=== PATIENT | male | born 1970 | race Caucasian/White ===

== ENCOUNTER 2019-04-08 17:39 | Inpatient (IN) | payer OTHER, MEDICAID ==
[~2019-04-08] VITALS: Ht 167.6 cm; Wt 61.7 kg
[2019-04-08 18:25] VITALS: BP_SYST 157
--- NOTE | 2019-04-08 19:58 | NUR ---
BROUGHT IN BY EMS FOR SUPRAPUBIC CATHETER DYSFUNTION. PLACED IN BED 4. PT. IS ALERT,ORIENTED. AFEBRILE, NOT IN ACUTE DISTRESS. VERBALIZED PAIN ON THE LEFT BUTTOCK DECUBITUS ULERS. AWAITING EVALUATION.
--- NOTE | 2019-04-08 20:02 | NUR ---
ER-MD CAME BY BEDSIDE TO EVALUATE PT.
[2019-04-08] MEDS ORDERED: KETOROLAC TROMETHAMINE 30 MG VIAL IVP ONE (20:15)
[2019-04-08] MEDS ORDERED: NACL 0.9% 1,000 ML IV ONE (20:15)
--- NOTE | 2019-04-08 20:23 | NUR ---
CALLED BACK. PT. ADMITTED TO MED-SURG IN PATIENT FOR STAGE 4 DECUBITUS ULCER AND DEHYDRATION. PARTIAL ADMITTING ORDERS GIVEN.
--- NOTE | 2019-04-08 20:29 | NUR ---
REPLACEMENT OF SUPRAPUBIC CATHETER ATTEMPTED BY PT/RN WITH MD'S PERMISSION BUT UNABLE. AWARE.
--- NOTE | 2019-04-08 20:55 | NUR ---
GAUGE 22 IV LINE ESTABLISHED TO THE LEFT UPPER ARM. NS @ 100 ML/HR AND TORADOL 30 MG IVP GIVEN ORDERED.
--- NOTE | 2019-04-08 21:16 | NUR ---
BLOOD DRAWN BY PIZZA CHEF.
[2019-04-08 21:26] LABS: BASOPHILS # (AUTO) 0.1 K/uL (0.0-0.2); BASOPHILS % (AUTO) 0.6 % (0.0-2.0); EOSINOPHILS # (AUTO) 0.1 K/uL (0.0-0.4); EOSINOPHILS % (AUTO) 1.5 % (0.0-4.0); HEMATOCRIT 22.8 % (36-54); HEMOGLOBIN 7.6 g/dL (14.0-18.0); LYMPHOCYTES # (AUTO) 1.1 K/uL (1.0-5.5); LYMPHOCYTES % (AUTO) 13.3 % (20.5-51.5); MEAN CORPUSCULAR HEMOGLOBIN 25 pg (27-31); MEAN CORPUSCULAR HGB CONC 34 % (32-36); MEAN CORPUSCULAR VOLUME 74 fL (79.0-98.0); MONOCYTES # (AUTO) 0.9 K/uL (0.0-1.0); MONOCYTES % (AUTO) 11.5 % (1.7-9.3); NEUTROPHILS % (AUTO) 73.1 % (40.0-70.0); PLATELET COUNT (AUTO) 487 K/uL (130-430); RED BLOOD CELL COUNT(AUTO) 3.07 MIL/uL (4.2-6.2); RED CELL DISTRIBUTION WIDTH 20.5 % (9.0-15.0); WHITE BLOOD COUNT (AUTO) 8.3 K/uL (4.8-10.8)
[2019-04-08 21:49] LABS: CALCIUM 7.3 mg/dL (8.4-11.0); CREATININE 1.54 mg/dL (0.55-1.30); POTASSIUM 3.5 mmol/L (3.5-5.1)
[2019-04-08 21:55] LABS: ALBUMIN 1.6 g/dL (3.4-4.8); TOTAL BILIRUBIN 0.2 mg/dL (0.0-1.0)
--- NOTE | 2019-04-08 22:28 | NUR ---
CALLLED MED-SURG FLOOR TO GIVE REPORT BUT CALVIN JACKSON NOT AVAILABLE AT THIS TIME. FUEL EFFICIENT AIRCRAFT DESIGNER SAID SHE WILL HAVE HER CALL ER BACK. WILL TRY AGAIN.
--- NOTE | 2019-04-08 23:15 | NUR ---
REPORT GIVEN TO MANUEL SIMPSON. PT. GOING TO ROOM 114-A. PAIN BETTER. VS REMAIN STABLE.
--- NOTE | 2019-04-08 23:25 | NUR ---
TRANSFERRED TO FLOOR VIA [facility]. TRANSFER UNEVENTFUL.
--- NOTE | 2019-04-08 23:45 | NUR ---
ADMISSION: The patient, CY NICHOLSON, 49 y/o, M admitted by MAXIMINO GALVAN MD, was oriented to room, call light and unit. Valuables were checked and .
[2019-04-09 00:26] VITALS: BP_SYST 146
--- NOTE | 2019-04-09 00:28 | NUR ---
Dr. Xei s/w Dr. Xie and informed patient is requesting dilaudid pain medication for his decub. Dr. Xie states he is familiar with this patient and he will not order dilaudid. He did order [place] 10-325mg Q6prn for severe pain, he also ordered a consult w/ Dr.John Ayala for suprapubic placement. Read back order and entered in [employer].
[2019-04-09] MEDS: HYDROcodone/ACETAMIN 10-325 MG TAB PO PRN ×4 (02:05→21:13)
[2019-04-09 02:07] VITALS: BP_SYST 146
--- NOTE | 2019-04-09 02:42 | NUR ---
CONSULTATION PAGED/CALLED Reason for Consultation: SUPRAPUBIC PLACEMENT Person Who was Notified: CUBA Consulting Physician: NICOLE DONALDSON; TRAVELING INVENTORY ASSOCIATE- MATT FONG Milk Pasteurizer Specialty: UROLOGY Ordering Physician: DR. GALVAN
[2019-04-09 08:00] VITALS: BP_SYST 173
--- NOTE | 2019-04-09 10:12 | NUR ---
Nutrition Update Thomas Scale 12 noted. Pt admitted for stage 3 decubitus ulcer, suprapubic catheter dysfunction. Diet: regular BMI: 22.2 kg/m2 RD to follow per nutrition care standards.
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
--- NOTE | 2019-04-09 11:41 | NUR ---
UROLOGY KIMMIE FONG LATE ENTRY DUE TO PATIENT CARE 0800 RECEIVED A CALL FROM MATT BURKS FROM DR BARRIOS OFFICE INQUIRING ABOUT PATIENT. INFORMATION AND PATIENT CONDITION WHY UROLOGY REFERAL WAS RELAYED TO [facility]. NO NEW ORDER GIVEN
[2019-04-09 12:02] VITALS: BP_SYST 167
--- NOTE | 2019-04-09 12:56 | NUR ---
UROLOGY RN REPORTED THAT SW DR MCCOY UROLOGIST THAT DR MCCOY'S GROUP WILL NOT TAKE PATIENT AT THIS TIME. CALLED FOR CONSULTED.
[2019-04-09] MEDS ORDERED: cloNIDine HCL 0.2 MG TABLET PO ONE (14:00)
[2019-04-09] MEDS ORDERED: BALSAM PERU/CASTOR OIL 60 GM OINT...G. TP ONE (15:15)
--- NOTE | 2019-04-09 15:40 | NUR ---
urology consult called Dr Ayala's office to follow up on the consult for patient and SW who will page .
[2019-04-09 16:56] VITALS: BP_SYST 133
--- NOTE | 2019-04-09 16:58 | NUR ---
WOUND EVALUATION: Late note for 1657 secondary to patient care. Wound Consult received from Dr. Xie. Thank you, Dr. Xie, for the consult. Patient received in a Katrina Bed with an Isoflex DEB mattress with low air-loss therapy initiated, awake, alert, and oriented. Patient is able to turn in bed independently. Thomas Score is a 12. Past Medical History: Paraplegia secondary to Spinal Cord Injury, Stage 4 decubitus ulcer of the Coccyx, Neurogenic Bladder, status post Suprapubic Catheter placement. Admitted for dysfunction of the Suprapubic Catheter and generalized weakness. Recent Labs: WBC 8.3, RBC 3.07, hemoglobin 7.6, hematocrit 22.8, BUN 31, creatinine 1.54, GFR 51, calcium 7.3, serum total protein 6.1, albumin 1.6. Microbiology: Wound culture results in progress. MRSA screen results in progress. Intrinsic factors that delay wound healing: Extrinsic factors that delay wound healing: Decreased mobility. Wound Assessment: 1. Left Buttock/Ischium area: Unstageable pressure ulcer, present on admission. Wound bed has 85% yellow slough, 10% pink tissue, 5% brown eschar. No odor, no drainage. Periwound is macerated. Surrounding tissue has scar tissue. Undermining present from 102 o'clock (1.7 cm at 10 o'clock; 3.5 cm at 12 o'clock; 1.8 cm at 2 o'clock). Wound measures 8.2 cm x 9.1 cm x 1.8 cm. Recommend: Cleanse wound with normal saline. Apply moisture barrier cream to mahesh-wound. Apply Venelex ointment to wound bed. Pack wound with 1/4 inch Iodoform packing strip. Cover with Sacral (butterfly) foam dressing. Perform wound care daily, and as needed for dressing soiling or dislodgement. 2. Right Lateral Hip near Femoral Head and Greater Trochanter: Unstageable pressure ulcer, present on admission. Wound bed has 50% yellow slough, 20% pink tissue, 30% black eschar. No odor, no drainage. Periwound is intact. Surrounding tissue has scar tissue. Wound measures 6.0 cm x 8.5 cm x 0.5 cm. Recommend: Cleanse wound with normal saline. Apply SurePrep to mahesh-wound. Apply Venelex ointment to wound bed. Cover with Sacral (butterfly) foam dressing. Perform wound care daily, and as needed for dressing soiling or dislodgement. 3. Left Mid Posterior Thigh: Unstageable pressure ulcer, present on admission. Wound bed has 35% yellow slough, 35% pink tissue, 30% black slough. No odor, no drainage. Periwound is intact. Surrounding tissue has scar tissue. Wound measures 1.8 cm x 1.4 cm x 0.5 cm. Recommend: Cleanse wound with normal saline. Apply SurePrep to mahesh-wound. Apply Venelex ointment to wound bed. Cover with foam dressing. Perform wound care daily, and as needed for dressing soiling or dislodgement. 4. Left Lateral Knee near Tibial Plateau: Unstageable pressure ulcer, present on admission. Wound bed has 95% yellow slough, 5% dull red tissue. No odor, no drainage. Periwound is intact. Surrounding tissue has scar tissue. Wound measures 1.8 cm x 1.0 cm. Recommend: Cleanse wound with normal saline. Apply moisture barrier cream to mahesh-wound. Apply Venelex ointment to wound bed. Cover with foam dressing. Perform wound care daily, and as needed for dressing soiling or dislodgement. Also recommend: Encourage and assist patient as needed with repositioning side to side only every 2 hours with pillow support and off-load pressure areas with pillows for pressure re-distribution. Offload, elevate and float bilateral heels with pillows. Perform skin care and monitor skin integrity Q shift. Use moisture barrier cream on buttocks and other moisture susceptible areas QID and as needed for soiling. Maintain patient on low air-loss therapy. Recommend surgical consult.
--- NOTE | 2019-04-09 17:40 | NUR ---
CONSULT PAGED SPECIAL POLICE: DR. MCCOY SPECIAL POLICE SPECIALITY: UROLOGY SPOKE TO: LEFT A DETAILED VOICE MESSAGE DIALED: [phone] ORDERED BY: DR. GALVAN
--- NOTE | 2019-04-09 19:25 | NUR ---
OPENING NOTES Pt and endorsement received from day shift nurse. Pt is AAOx4, lying in bed. Pt complained of right hip and back pain, told him that he will have it when it's due, pt verbalized understanding. No signs of acute distress or SOB noted. Pt on saline lock on left upper arm G22. Encouraged to use call light when needed. Safety precautions in place with 3 side rails up, wheels locked, bed alarm on and in lowest level. Call light with pt. Will continue to monitor.
--- NOTE | 2019-04-09 20:24 | NUR ---
SPOKE TO DR. XIE Spoke to Dr. Xie regarding pt's complaint of heartburn. Dr. Xie ordered TUMS 1 tab Q6 PRN. Read back order and will carry out.
[2019-04-09 20:55] VITALS: BP_SYST 153
[2019-04-09] MEDS: CALCIUM CARBONATE 500 MG/ TAB.CHEW PO PRN (21:00)
[2019-04-09] MEDS: cloNIDine HCL 0.2 MG TABLET PO SCH (21:01)
--- NOTE | 2019-04-09 21:13 | NUR ---
PAIN MED Pt complained of generalized body pain with a scale of 10/10. [place] 10-325mg PO given as ordered. Educated on safety and side effects like dizziness, pt verbalized understanding. Will continue to monitor.
[2019-04-10] VITALS (7 sets, daily range): BP systolic 124–143
--- NOTE | 2019-04-10 00:07 | NUR ---
ROUNDS Pt is resting in bed with both eyes closed, with visible chest rise and fall with non-labored breathing noted. No complains of pain and no signs of acute distress noted. Safety precautions in place and call light with pt. Will continue to monitor.
[2019-04-10] MEDS: HYDROcodone/ACETAMIN 10-325 MG TAB PO PRN ×3 (03:23→21:09)
--- NOTE | 2019-04-10 03:23 | NUR ---
PAIN MED Pt complained of back and hip pain with a scale of 10/10. [place] 10-325mg PO given as ordered. Vital signs taken and recorded. Reeducated on safety and side effects like dizziness, pt verbalized understanding. Will continue to monitor.
--- NOTE | 2019-04-10 07:00 | NUR ---
CLOSING NOTES Pt is resting in bed with both eyes closed, with visible chest rise and fall with non-labored breathing noted. No complains of pain at this time. No signs of acute distress or SOB noted. All needs attended throughout the shift. Safety precautions maintained with 3 side rails up, wheels locked, bed alarm on and in lowest position. Call light with pt. Will endorse to day shift nurse.
[2019-04-10 07:16] LABS: BASOPHILS # (AUTO) 0.1 K/uL (0.0-0.2); BASOPHILS % (AUTO) 0.7 % (0.0-2.0); EOSINOPHILS # (AUTO) 0.4 K/uL (0.0-0.4); EOSINOPHILS % (AUTO) 5.3 % (0.0-4.0); LYMPHOCYTES # (AUTO) 1.1 K/uL (1.0-5.5); LYMPHOCYTES % (AUTO) 14.3 % (20.5-51.5); MEAN CORPUSCULAR HEMOGLOBIN 24 pg (27-31); MEAN CORPUSCULAR HGB CONC 32 % (32-36); MEAN CORPUSCULAR VOLUME 76 fL (79.0-98.0); MONOCYTES # (AUTO) 0.9 K/uL (0.0-1.0); MONOCYTES % (AUTO) 11.1 % (1.7-9.3); NEUTROPHILS # (AUTO) 5.4 K/uL (1.8-7.7); NEUTROPHILS % (AUTO) 68.6 % (40.0-70.0); PLATELET COUNT (AUTO) 475 K/uL (130-430); RED CELL DISTRIBUTION WIDTH 20.8 % (9.0-15.0); WHITE BLOOD COUNT (AUTO) 7.9 K/uL (4.8-10.8)
[2019-04-10 07:43] LABS: HEMOGLOBIN 6.7 g/dL (14.0-18.0)
[2019-04-10 07:44] LABS: HEMATOCRIT 21.2 % (36-54)
[2019-04-10 07:47] LABS: POTASSIUM 3.9 mmol/L (3.5-5.1)
[2019-04-10 07:48] LABS: CALCIUM 7.6 mg/dL (8.4-11.0); CREATININE 1.02 mg/dL (0.55-1.30)
--- NOTE | 2019-04-10 08:00 | NUR ---
RECIEVED IN BED ASSESSMENT COMPLETE AT THIS TIME, A/O X4, LAB CALLED WITH CRITICAL H&h6.11/25.2 MD GALVAN PAGED AWAITING A RETURN CALL WILL CONTINUE TO MONITOR AND ASSESS ALL NEEDS ANTICIPATED AT THIS TIME CALL LIGHT IN REACH DENIES PAIN
[2019-04-10 08:08] LABS: TOTAL IRON BIND. CAPACITY 155 ug/dL (250-450)
--- NOTE | 2019-04-10 09:42 | NUR ---
[facility]SA POSITIVE 2ND CALL PAGED TO MD DOWNS AWAITING A RETURN CALL
[2019-04-10] MEDS: cloNIDine HCL 0.2 MG TABLET PO SCH ×2 (09:51→21:08)
[2019-04-10] MEDS: BALSAM PERU/CASTOR OIL 60 GM OINT...G. TP SCH (09:52)
--- NOTE | 2019-04-10 11:05 | NUR ---
CONSULT UROLOGY SU[facility]APUBIC [phone] S/[facility] OFFICE
--- NOTE | 2019-04-10 13:55 | NUR ---
Discharge Planning: DCP faxed pt referral to [facility] (f [phone] p [phone]) DCP spoke to Tracy she will review. Addendum: 04/10/19 at 1514 by Abby Waldron DP Per Tracy at [facility] (f [phone] p [phone]) staff will come out to evaluate 04/10/19. Need to know patient after care plan.
--- NOTE | 2019-04-10 14:09 | NUR ---
Dietitian Recommendations * Recommend regular diet w/ Ensure Enlive TID (ONS provides 1050 kcal/day, 60 gm protein/day * RD recommend Silvano BID and Prosource daily, as well as VIT C, zinc, and MVI supplementation -- pt declined Please refer to Nutrition Assessment for details. Addendum: 04/10/19 at [address] Amended: Links added.
--- NOTE | 2019-04-10 14:20 | NUR ---
1ST UNIT OF PRBC INITIATED AND STARTEDVSS AFEBRILE WILL CONTINUE TO MONITOR AND ASSESS NO SIGNIFICANT CHANGES md IN AND ROUNDING AT THIS TIME
--- NOTE | 2019-04-10 17:10 | NUR ---
SECOND UNIT OF PRBC STARTED NO ADVERSE REACTIONS AFEBRILE NO C/O PAIN WILL CONTINUE TO MONITOR AND ASSESS ALL NEEDS ANTICIPATED AND MET
--- NOTE | 2019-04-10 19:37 | NUR ---
UROLOGY CONSULT DR MCCOY LATE ENTRY DUE TO PATIENT CARE [address] MCCOY WHO EXPRESSED THAT HE WILL NOT BE ABLE TO TAKE PATIENT CASE MD ONLY TAKES [facility] AND [facility]. DR MCCOY SW WITH DR GALVAN. DR GALVAN IS AWARE THAT AND DR MCCOY WILL NOT BE ABLE TO SEE THE PATIENT AT THIS TIME
--- NOTE | 2019-04-10 19:40 | NUR ---
Late Entry due to patient care: Pt was received lying in bed fully awake, alert and oriented x4. Blood transfusion completely transfused and no transfusion reaction noted. IV site in EMMY is without any signs of infiltration. VSS. No acute distress noted and no c/o pain or discomfort. Fall and safety precautions are in place.
--- NOTE | 2019-04-10 22:00 | NUR ---
Pt is resting in bed and caring for his ileostomy. Saline lock in EMMY is without any signs of infiltration. Pt is declining bed alarm and wants only 2 side rails up. Call light is with pt and bed is in the lowest and locked positions.
--- NOTE | 2019-04-11 | NUR ---
Pt is awake and not in any distress.
[2019-04-11 00:57] VITALS: BP_SYST 140
--- NOTE | 2019-04-11 02:00 | NUR ---
Pt is sleeping comfortably in bed. Call light is with pt and bed is in the lowest and locked positions.
[2019-04-12] MEDS: BALSAM PERU/CASTOR OIL 60 GM OINT...G. TP SCH (09:00)
[2019-04-12 13:14] LABS: FOLATE (FOLIC ACID) 8.6 ng/mL (>3.0)
[2019-04-12] MEDS: cloNIDine HCL 0.2 MG TABLET PO SCH (21:00)
[2019-04-12] MEDS: SOD FERRIC GLUC COMPLEX/SUC 125 MG in NS 100 ML IV SCH (21:15)
--- NOTE | 2019-04-12 22:00 | NUR ---
pt is on his wheel chair. pt is able to transfer to bed by self, stable. no distress. neds attended, kept on isolation. call ight inr each. will follow-up.
--- NOTE | 2019-04-12 22:30 | NUR ---
dr jensen is made aware that he needs to write that pt is colonized with mrsa before going to snf and made aware that still not seen by dr. redding and no suprapubic catheter. verbalized that pt need suprapubic catheter.
[2019-04-12] MEDS: HYDROcodone/ACETAMIN 10-325 MG TAB PO PRN (23:40)
--- NOTE | 2019-04-13 | NUR ---
pty is awake, eating snacks, watching tv. stable. needs attended. call light in reach. will follow-up.
[2019-04-13 00:19] VITALS: BP_SYST 160
--- NOTE | 2019-04-13 02:54 | NUR ---
pt call and ask for pitcher of ice water. no pain, no distress. stable, needs attended, call light in reach. safety on. will follow-up.
[2019-04-13] MEDS: HYDROcodone/ACETAMIN 10-325 MG TAB PO PRN ×2 (06:01→21:50)
--- NOTE | 2019-04-13 06:03 | NUR ---
pt is awake, alert. no distress.pt call for pain medication, stable. educate pt. pt verbalized understanding. needs attended, call light in reach. will follow-up.
--- NOTE | 2019-04-13 07:20 | NUR ---
closing: pt is sleeping, wakes up when during report. kept on isolation. stable the whole shift. bedside report given. bedside report given to am rn.
[2019-04-13] MEDS: BALSAM PERU/CASTOR OIL 60 GM OINT...G. TP SCH (09:00)
[2019-04-13] MEDS: cloNIDine HCL 0.2 MG TABLET PO SCH ×2 (09:00→21:51)
--- NOTE | 2019-04-13 10:30 | NUR ---
ATTENDING MD GUEST RELATIONS OFFICER DR JAMES WAS CALLED, RE: DISCHARGE ORDER, BED AVAILABLE AT [facility]. SPOKE TO FREDDY.
[2019-04-13 12:17] VITALS: BP_SYST 122
[2019-04-13 16:16] VITALS: BP_SYST 137
--- NOTE | 2019-04-13 16:58 | NUR ---
Case mgt: Pt has MRSA in the wound-and nares-pt will need isolation room--LM with Domenica davis [facility], who is covering after hours at [phone]-- RN
[2019-04-13] MEDS: VANCOMYCIN HCL 750 MG in NS 250 ML IV SCH (18:00)
[2019-04-13] MEDS: PIPERACILLIN/TAZO 3.375/DEX-IS 50 ML IV SCH (18:00)
--- NOTE | 2019-04-13 19:25 | NUR ---
initial notes: pt is awake, alert, oriented x 4. on bed. stable.no complain of pain. no sob. not distress, isolation for mrsa of nares and wound. pt iv lock left upper arm gauge 22- intact and patent. pt has multiple wound and refuse to ne assess. pt has left ileostomy wiht ileostomy bag and suprapubic catheter insertion- no catheter. pt is the one who put ileostomy bag to his self. educate and discuss his plan of care and antibiotic. pt agree and understand. needs attended, call light in reach. side rails up. bed lock. maintained on isolation. will follow-up.
[2019-04-13 19:30] VITALS: BP_SYST 146
[2019-04-13] MEDS: SOD FERRIC GLUC COMPLEX/SUC 125 MG in NS 100 ML IV SCH (21:51)
--- NOTE | 2019-04-13 22:00 | NUR ---
pt is watching tv. stable. iv medication, infusing well. needs attended. call light in reach. will follow-up.
[2019-04-14] VITALS: BP_SYST 148
--- NOTE | 2019-04-14 | NUR ---
awake, alert, clean his self. needs attended call light in reach. will follow up.
[2019-04-14] MEDS: PIPERACILLIN/TAZO 3.375/DEX-IS 50 ML IV SCH ×4 (00:06→18:00)
--- NOTE | 2019-04-14 02:25 | NUR ---
sleeping,quietly. no sob. no pain. stable. call light in reach. will monitor.
--- NOTE | 2019-04-14 04:00 | NUR ---
pt is awake and alert. pt shout, but when you check on him, he stated he is fine., stable, needs attended, call light in reach. will follow-up.
[2019-04-14] MEDS: VANCOMYCIN HCL 750 MG in NS 250 ML IV SCH ×2 (04:07→18:00)
--- NOTE | 2019-04-14 06:00 | NUR ---
pt pullout his iv site, vancomycin not finish yet. try to insert new iv site, unsuccessful. needs attended. will follow-up.
--- NOTE | 2019-04-14 07:13 | NUR ---
closing: pt is resting. stable, kept isolation. no iv access at this time. needs attended the whole shift. will give bedside report to am rn.
[2019-04-14 08:00] VITALS: BP_SYST 169
--- NOTE | 2019-04-14 08:00 | NUR ---
RECEIVED PT IN BED ASSESSMENT COMPLETE AT THIS TIME PLAN OF CARE REVIEWED PT NON COMPLIANT. PT WITHOUT IV ACCESS AND REFUSED TO HAVE ONE INSERTED STATES HE WANTS A PICC LINE CHARGE NURSE AWARE AND WILL MAKE MD AWARE UPON ROUNDING ALL NEEDS ANTICIPATED CALL LIGHT IN REACH
[2019-04-14] MEDS: HYDROcodone/ACETAMIN 10-325 MG TAB PO PRN ×2 (09:22→20:36)
[2019-04-14] MEDS: cloNIDine HCL 0.2 MG TABLET PO SCH ×2 (09:22→20:35)
[2019-04-14] MEDS: BALSAM PERU/CASTOR OIL 60 GM OINT...G. TP SCH (09:24)
[2019-04-14 12:32] VITALS: BP_SYST 153
--- NOTE | 2019-04-14 12:44 | NUR ---
PT CONTINUES TO BE NON COMPLIANT WITH CARE REFUSING IV ACCESS AL NEEDS ANTICIPATED AT THIS TIME
--- NOTE | 2019-04-14 13:06 | NUR ---
ID PAGED X2 AWAITING A RETURN CALL TO SEE IF PT CAN GET A PICC LINE AT THIS TIME PT REMAINS NON COMPLIANT WITH IV INSERTION
--- NOTE | 2019-04-14 13:26 | NUR ---
ATTENDING MD PHYSICIAN DR JAMES WAS PAGED, RE: PIC LINE ORDER. SPOKE TO AMANDA.
[2019-04-14 16:08] LABS: INR 1.1 (0.80-1.20); PROTHROMBIN TIME 10.6 SECS (9.5-12.5)
[2019-04-14 16:32] VITALS: BP_SYST 147
--- NOTE | 2019-04-14 17:08 | NUR ---
PICC LINE NURSE WILL BE IN AROUND 1900 PT AWARE WILL CONTINUE TO MONITOR AND ASSESS
--- NOTE | 2019-04-14 18:12 | NUR ---
ALL NEEDS ANTICIPATED WILL ENDORSE CARE TO ONCOMING RN
--- NOTE | 2019-04-14 19:30 | NUR ---
OPENING NOTES Patient is resting, sitting up in bed, no signs of acute respiratory distress observed. No IV site available. Only one side rail up at this time, patient refuses both side rails to be raised, patient education provided and patient verbalizes understanding of risks and benefits of side rails. Bed alarm on, bed at lowest position. Will continue to monitor.
[2019-04-14 20:00] VITALS: BP_SYST 162
--- NOTE | 2019-04-14 21:25 | NUR ---
Patient is resting, alert and oriented, pain medication provided, no signs of distress observed at this time. Will continue to monitor.
--- NOTE | 2019-04-14 22:16 | NUR ---
PICC LINE ACQUIRED, CHEST XRAY HAS BEEN DONE, PICC NURSE HAS OKAYED THE USE OF THE PICC LINE ON THE RIGHT UPPER ARM, DOUBLE LUMEN.
[2019-04-14] MEDS: SOD FERRIC GLUC COMPLEX/SUC 125 MG in NS 100 ML IV SCH (22:51)
--- NOTE | 2019-04-14 23:30 | NUR ---
Patient requests Restoril for sleep, patient is resting, no signs of acute respiratory distress observed. Will continue to monitor.
[2019-04-15] MEDS: PIPERACILLIN/TAZO 3.375/DEX-IS 50 ML IV SCH ×4 (00:06→18:03)
--- NOTE | 2019-04-15 00:14 | NUR ---
Four towels and ortiz with ice provided to the patient. IVF running to EMMY noonan, dressings c/d/i. Will continue to monitor. Addendum: 04/15/19 at 0428 by Avel Son RN CHAPARRO ELLIS, please disregard EMMY
--- NOTE | 2019-04-15 00:54 | NUR ---
PAGED PAGED DOCTOR ERIKA WHO IS COVERING FOR [facility]
--- NOTE | 2019-04-15 01:30 | NUR ---
Provided patient with towels and updated patient that we are waiting for the doctor to call back to ask for restoril, but patient stated that he no longer needs restoril and can wait until tomorrow. Will continue to monitor.
[2019-04-15 01:51] VITALS: BP_SYST 130
--- NOTE | 2019-04-15 03:41 | NUR ---
Patient is resting, no signs of acute respiratory distress observed. IVF running, dressings c/d/i. Safety precautions in place. Will continue to monitor.
[2019-04-15] MEDS: HYDROcodone/ACETAMIN 10-325 MG TAB PO PRN ×2 (05:17→22:38)
[2019-04-15] MEDS: VANCOMYCIN HCL 750 MG in NS 250 ML IV SCH ×2 (05:18→18:55)
--- NOTE | 2019-04-15 06:50 | NUR ---
Nutrition Update Thomas Scale 17 noted. Pt admitted for Stage 4 Decubitus Ulcer, Suprapubic Catheter Dysfunction Diet: Regular BMI: 22 kg/m2 RD to follow per nutrition care standards.
--- NOTE | 2019-04-15 07:30 | NUR ---
OPENING NOTES: RECEIVED PATIENT FROM PROGRAMMING DIRECTOR NURSE. PATIENT IS AWAKE AND ALERT x4 LAYING DOWN IN BED. PATIENT DENIES ANY PAIN AT THE MOMENT. PATIENT IS TOLERATING OXYGEN AT ROOM AIR WITH NO SIGNS OF DISTRESS OR SHORTNESS OF BREATH NOTED. PICC LINE IS INTACT WITH CLEAN, DRY DRESSING. ILEOSTOMY INTACT WITH CLEAN, DRY DRESSING. PATIENT IN STABLE CONDITION. SAFETY, FALL, ASPIRATION AND CONTACT PRECAUTIONS ARE IN PLACE. BED LOCKED IN LOWEST POSITION WITH CALL LIGHT IN REACH. WILL CONTINUE TO MONITOR PATIENT FOR ANY CHANGES.
--- NOTE | 2019-04-15 07:36 | NUR ---
CLOSING NOTES Patient is resting, no signs of acute respiratory distress, sitting up. IVF running, dressings c/d/i for CHAPARRO picc. Ileostomy is intact, no redness noted. Bed at lowest position, bed alarm on, Call light within reach. All needs met throughout shift. Endorsed to oncoming shift of suprapubic cath that was pulled out and dietary has been called for patient's request for breakfast with coffee, milk, and ensure.
[2019-04-15 07:57] LABS: BASOPHILS % (AUTO) 0.8 % (0.0-2.0); EOSINOPHILS # (AUTO) 0.5 K/uL (0.0-0.4); EOSINOPHILS % (AUTO) 7.3 % (0.0-4.0); HEMATOCRIT 24.2 % (36-54); HEMOGLOBIN 7.9 g/dL (14.0-18.0); LYMPHOCYTES # (AUTO) 1.6 K/uL (1.0-5.5); LYMPHOCYTES % (AUTO) 25.3 % (20.5-51.5); MEAN CORPUSCULAR HEMOGLOBIN 26 pg (27-31); MEAN CORPUSCULAR HGB CONC 33 % (32-36); MEAN CORPUSCULAR VOLUME 79 fL (79.0-98.0); MONOCYTES # (AUTO) 0.8 K/uL (0.0-1.0); NEUTROPHILS # (AUTO) 3.3 K/uL (1.8-7.7); NEUTROPHILS % (AUTO) 53.6 % (40.0-70.0); PLATELET COUNT (AUTO) 504 K/uL (130-430); RED BLOOD CELL COUNT(AUTO) 3.07 MIL/uL (4.2-6.2); RED CELL DISTRIBUTION WIDTH 22.1 % (9.0-15.0); WHITE BLOOD COUNT (AUTO) 6.2 K/uL (4.8-10.8)
[2019-04-15 08:15] LABS: ALBUMIN 1.3 g/dL (3.4-4.8); CALCIUM 7.5 mg/dL (8.4-11.0); CREATININE 0.86 mg/dL (0.55-1.30); POTASSIUM 3.9 mmol/L (3.5-5.1); TOTAL BILIRUBIN 0.2 mg/dL (0.0-1.0)
[2019-04-15 08:40] VITALS: BP_SYST 160
[2019-04-15] MEDS: cloNIDine HCL 0.2 MG TABLET PO SCH (10:04)
[2019-04-15] MEDS: BALSAM PERU/CASTOR OIL 60 GM OINT...G. TP SCH (10:05)
--- NOTE | 2019-04-15 10:15 | NUR ---
RN ROUNDS: PATIENT IS AWAKE AND ALERT x4 LAYING DOWN IN BED. NO SIGNS OF DISTRESS OR SHORTNESS OF BREATH NOTED. PATIENT REFUSED ME TO DO WOUND CARE AND STATED " I DO IT MYSELF, PLEASE DON'T TOUCH ME". PATIENT IN STABLE CONDITION. WILL CONTINUE TO MONITOR PATIENT FOR ANY CHANGES.
--- NOTE | 2019-04-15 12:15 | NUR ---
RN ROUNDS: PATIENT IS AWAKE AND ALERT x4 LAYING DOWN IN BED. PATIENT IN STABLE CONDITION. NO SIGNS OF DISTRESS OR SHORTNESS OF BREATH NOTED. WILL CONTINUE TO MONITOR PATIENT FOR ANY CHANGES.
[2019-04-15 13:05] VITALS: BP_SYST 134
--- NOTE | 2019-04-15 13:28 | NUR ---
Nutrition F/U RD reviewed pt's current EMR including diet Hx, physician notes, nursing notes, pertinent labs/meds/procedures, care trends and care activity. Current Diet Order: Regular diet, Ensure Enlive TID. Subjective information: Pt seen in bed. He reported of good appetite. Consumes 75% of foods in tray, diet well tolerated. Current PO intake: Good 83% average of 3 meals 04/14/19 Estimated Energy Expenditure (kcals/day) 9798-8622 kcal/day (30-35 kcal/kg CBW for wound healing) Estimated Protein Required (g/day) 93-124 gm/day (1.5-2 gm/kg CBW for wound healing) Estimated Fluid Required (l/day) 1.9-2.2 L/day (1 ml/kcal/day for optimal wound healing) Problem/Etiology/Signs/Symptoms Increased nutritional needs related to metabolic demands as evidenced by estimated nutritional requirements for wound healing. (*ongoing) Expected Outcomes/Goals - Monitor appetite and PO intakes w/ goal of pt meeting at least 85-100% of estimated nutritional needs, labs trending WNL, normal GI function, and skin integrity/wt maintenance Dietitian Recommendations * Recommend continue regular diet w/ Ensure Enlive TID (ONS provides 1050 kcal/day, 60 gm protein/day * RD recommend Silvano BID and Prosource daily, as well as VIT C, zinc, and MVI supplementation -- pt declined (during previous visit) Follow Up Mod Risk: F/U in 3-5 days
--- NOTE | 2019-04-15 13:33 | NUR ---
Dietitian Recommendations * Recommend continue regular diet w/ Ensure Enlive TID (ONS provides 1050 kcal/day, 60 gm protein/day * RD recommend Silavno BID and Prosource daily, as well as VIT C, zinc, and MVI supplementation -- pt declined (during previous visit) [facility], RD
--- NOTE | 2019-04-15 14:18 | NUR ---
RN ROUNDS: PATIENT IS AWAKE AND ALERT x4 LAYING DOWN IN BED. GAVE PATIENT TOWELS AND WATER WITH ICE. PATIENT STATES HE IS DOING "GOOD". PATIENT IN STABLE CONDITION. WILL CONTINUE TO MONITOR PATIENT FOR ANY CHANGES.
--- NOTE | 2019-04-15 14:50 | NUR ---
MD ROUNDS: DR. GALVAN MAKING HIS ROUNDS. AWARE OF PATIENT'S CONDITION. NEW ORDERS GIVEN.
--- NOTE | 2019-04-15 15:33 | NUR ---
Discharge Planning: PLANT OPERATOR/SHIFT SUPERVISOR called [facility] ([phone]) and spoke to Katty who states that they do not have an isolation bed for the pt; Katty states that on Monday they found out that the pt is MRSA positive in nares and wound. PLANT OPERATOR/SHIFT SUPERVISOR has updated [facility] [employer] force planners.
--- NOTE | 2019-04-15 16:10 | NUR ---
RN ROUNDS: PATIENT IS AWAKE AND ALERT x4 LAYING DOWN IN BED. PATIENT DENIES ANY PAIN AT THE MOMENT. NO SIGNS OF DISTRESS OR SHORTNESS OF BREATH NOTED. PATIENT IN STABLE CONDITION. WILL CONTINUE TO MONITOR PATIENT FOR ANY CHANGES.
[2019-04-15 16:14] VITALS: BP_SYST 137
--- NOTE | 2019-04-15 18:59 | NUR ---
CLOSING NOTES: PATIENT IS AWAKE AND ALERT x4 LAYING DOWN IN BED. PATIENT DENIES ANY PAIN AT THE MOMENT. PATIENT IS TOLERATING OXYGEN AT ROOM AIR WITH NO SIGNS OF DISTRESS OR SHORTNESS OF BREATH NOTED. PICC LINE IS INTACT WITH CLEAN, DRY DRESSING. ILEOSTOMY INTACT WITH CLEAN, DRY DRESSING. PATIENT IN STABLE CONDITION. SAFETY, FALL, ASPIRATION AND CONTACT PRECAUTIONS REMAINED IN PLACE THROUGHOUT THE SHIFT. BED LOCKED IN LOWEST POSITION WITH CALL LIGHT IN REACH. WILL ENDORSE PATIENT CARE TO ONCOMING SAP SD ANALYST NURSE.
[2019-04-16] MEDS: PIPERACILLIN/TAZO 3.375/DEX-IS 50 ML IV SCH ×3 (00:16→17:07)
[2019-04-16 00:28] VITALS: BP_SYST 149
[2019-04-16 02:48] VITALS: BP_SYST 138
[2019-04-16] MEDS: VANCOMYCIN HCL 750 MG in NS 250 ML IV SCH ×2 (06:40→18:28)
[2019-04-16 07:27] LABS: BASOPHILS % (AUTO) 0.7 % (0.0-2.0); EOSINOPHILS # (AUTO) 0.5 K/uL (0.0-0.4); EOSINOPHILS % (AUTO) 7.7 % (0.0-4.0); HEMATOCRIT 24.8 % (36-54); LYMPHOCYTES # (AUTO) 1.5 K/uL (1.0-5.5); LYMPHOCYTES % (AUTO) 22.4 % (20.5-51.5); MEAN CORPUSCULAR HEMOGLOBIN 26 pg (27-31); MEAN CORPUSCULAR HGB CONC 32 % (32-36); MONOCYTES # (AUTO) 0.7 K/uL (0.0-1.0); MONOCYTES % (AUTO) 11.3 % (1.7-9.3); NEUTROPHILS # (AUTO) 3.8 K/uL (1.8-7.7); NEUTROPHILS % (AUTO) 57.9 % (40.0-70.0); PLATELET COUNT (AUTO) 535 K/uL (130-430); RED BLOOD CELL COUNT(AUTO) 3.15 MIL/uL (4.2-6.2); RED CELL DISTRIBUTION WIDTH 22.4 % (9.0-15.0); WHITE BLOOD COUNT (AUTO) 6.6 K/uL (4.8-10.8)
--- NOTE | 2019-04-16 07:30 | NUR ---
OPENING NOTES: RECEIVED PATIENT FROM LINE DEPARTMENT SUPERVISOR NURSE. PATIENT IS AWAKE AND ALERT x4 LAYING DOWN IN BED. PATIENT DENIES ANY PAIN AT THE MOMENT. PATIENT IS TOLERATING OXYGEN AT ROOM AIR WITH NO SIGNS OF DISTRESS OR SHORTNESS OF BREATH NOTED. PICC LINE IS INTACT WITH CLEAN, DRY DRESSING. ILEOSTOMY INTACT WITH CLEAN, DRY DRESSING. PATIENT IN STABLE CONDITION. SAFETY, FALL, ASPIRATION AND CONTACT PRECAUTIONS ARE IN PLACE. BED LOCKED IN LOWEST POSITION WITH CALL LIGHT IN REACH. WILL CONTINUE TO MONITOR PATIENT FOR ANY CHANGES.
[2019-04-16 07:34] LABS: MEAN CORPUSCULAR VOLUME 79 fL (79.0-98.0)
[2019-04-16 07:54] LABS: CALCIUM 7.3 mg/dL (8.4-11.0); CREATININE 1.02 mg/dL (0.55-1.30); POTASSIUM 4.6 mmol/L (3.5-5.1)
[2019-04-16 08:00] VITALS: BP_SYST 149
[2019-04-16] MEDS: cloNIDine HCL 0.2 MG TABLET PO SCH ×2 (09:00→23:23)
[2019-04-16] MEDS: BALSAM PERU/CASTOR OIL 60 GM OINT...G. TP SCH (09:23)
--- NOTE | 2019-04-16 10:15 | NUR ---
RN ROUNDS: PATIENT IS ASLEEP IN BED. PATIENT REFUSED AND YELLED FOR ME NOT TO GO INTO THE ROOM ALL THE WAY. PATIENT STATES HE DOESN'T NEED ANYTHING. PATIENT IN STABLE CONDITION. WILL CONTINUE TO MONITOR PATIENT FOR ANY CHANGES.
--- NOTE | 2019-04-16 11:25 | NUR ---
Discharge Planning: .DCP faxed pt referral to [facility] (f [phone] p [phone]) DCP to follow up Addendum: 04/16/19 at 1639 by Abby Waldron DP [facility] (f [phone] p [phone]) declined pt DCP spoke to Alejandra mendoza ISO bed
--- NOTE | 2019-04-16 11:40 | NUR ---
DC Planning: per Katty at [facility]: there is no isolation bed, unable to accept the pt today. Dir Slade contacted [facility] for snf eval. The pt has MRSA in the wound-and nares-pt will need isolation room.
--- NOTE | 2019-04-16 12:20 | NUR ---
RN ROUNDS: PATIENT IS ASLEEP LAYING DOWN IN BED. PATIENT DENIES ANY PAIN AT THE MOMENT. NO SIGNS OF DISTRESS OR SHORTNESS OF BREATH NOTED. PATIENT IN STABLE CONDITION. WILL CONTINUE TO MONITOR PATIENT FOR ANY CHANGES.
--- NOTE | 2019-04-16 14:10 | NUR ---
RN ROUNDS: PATIENT IS REFUSING ME TO GO INTO THE ROOM. PATIENT IS AWAKE AND ALERT x4 LAYING IN BED. PATIENT STATES HE DOES NOT NEED ANYTHING. PATIENT IN STABLE CONDITION. WILL CONTINUE TO MONITOR PATIENT FOR ANY CHANGES.
[2019-04-16 15:42] VITALS: BP_SYST 129
--- NOTE | 2019-04-16 16:25 | NUR ---
RN ROUNDS: PATIENT IS ASLEEP IN BED. NO SIGNS OF DISTRESS OR SHORTNESS OF BREATH NOTED. PATIENT IN STABLE CONDITION. WILL CONTINUE TO MONITOR PATIENT FOR ANY CHANGES.
--- NOTE | 2019-04-16 16:32 | NUR ---
DISCHARGE BARRIER: NO ACCEPTING SNF, PT IS HOMELESS, SUPRAPUBIC CATH DISLODGED AND UNABLE TO REINSERT, PT HAS COLOSTOMY, WHEEL CHAIR BOUND, HAS Stage 4 decubitus ulcer of coccyx. NEUROGENIC BLADDER WITH CHRONIC SUPRAPUBIC CATH, NO UROLOGY TO SEE PT INHOUSE BUT DR. MCCOY WILL SEE PT OUT PATIENT, WILL NEED TO SET UP AN APPOINTMENT WITH THE MD UPON DISCHARGE.
[2019-04-16] MEDS: HYDROcodone/ACETAMIN 10-325 MG TAB PO PRN (18:29)
--- NOTE | 2019-04-16 18:41 | NUR ---
CLOSING NOTES: PATIENT IS AWAKE AND ALERT x4 LAYING DOWN IN BED. PATIENT DENIES ANY PAIN AT THE MOMENT. PATIENT IS TOLERATING OXYGEN AT ROOM AIR WITH NO SIGNS OF DISTRESS OR SHORTNESS OF BREATH NOTED. PICC LINE IS INTACT WITH CLEAN, DRY DRESSING. ILEOSTOMY INTACT WITH CLEAN, DRY DRESSING. PATIENT IN STABLE CONDITION. SAFETY, FALL, ASPIRATION AND CONTACT PRECAUTIONS REMAINED IN PLACE THROUGHOUT THE DAY. BED LOCKED IN LOWEST POSITION WITH CALL LIGHT IN REACH. WILL ENDORSE PATIENT CARE TO ONCOMING LAUNCH MANAGER NURSE.
[2019-04-16] MEDS: SOD FERRIC GLUC COMPLEX/SUC 125 MG in NS 100 ML IV SCH (22:37)
[2019-04-17] MEDS: PIPERACILLIN/TAZO 3.375/DEX-IS 50 ML IV SCH ×5 (00:24→23:03)
[2019-04-17 01:30] VITALS: BP_SYST 145
--- NOTE | 2019-04-17 01:30 | NUR ---
i am to assume the care of the pt for the remainder of the shift.pt.presents isolation status;mrsa;nares/wound. pt.presents paraplegic status.pt.presents picc line;rt.bicept.intact;patent.pt.presents colostomy.pt.presents wounds; sacrum;buttocks.pt. prefers to attend to the colostomy/wound care.pt.capable to reposition self:in bed and to the wheel chair.general status stable. respiratory status stable;unlabored@room air.no c/o pain,nausea.call light/telephone placed w/in reach of the pt.
--- NOTE | 2019-04-17 01:30 | NUR ---
pt.stated he will attend to his wound care. Addendum: 04/17/19 at 0511 by Misbah Rodriguez RN Amended: Links added.
[2019-04-17 01:32] VITALS: BP_SYST 169
--- NOTE | 2019-04-17 02:00 | NUR ---
pt.assessed.pt.presents quiescent affect;calm,resting.no c/o pain,nausea.pt.capable to repositioned self.picc line intact;patent;iv iron infusing. no requests posited@this hour.general status stable.respiratory status stable;unlabored.call light/telephone w/in rec of the pt.
--- NOTE | 2019-04-17 04:00 | NUR ---
pt.assessed.pt.presents quiescent affect;calm,somnolent.picc line intact;patent;i attempted to assess the colotomy;pt stated he will attend to the colostomy care.pt.capable to reposition self.general status stable,respiratory status stable;unlabored.call light/telephone w/in reach of the pt.
[2019-04-17] MEDS: VANCOMYCIN HCL 750 MG in NS 250 ML IV SCH ×2 (05:35→17:45)
[2019-04-17] MEDS: HYDROcodone/ACETAMIN 10-325 MG TAB PO PRN ×3 (05:44→21:19)
--- NOTE | 2019-04-17 06:31 | NUR ---
pt.assessed.pt.requested medication;pain.i have administered:norco;10/325 mg po 1 tab.to f/u re;pain medication efficacy.per pain mgx protocol.i have administered zosyn/vancomycin;abx;ivpb:0600a dose via picc line.i noted the picc line dsg is soiled. i apprised the pt.that nsg is to change the dsg w/in 7-days or prn;soiled.pt refused.the dsg change.pt requested food items. i have provided the food items.pt.capable to reposition self.call light/telephone w/in reach of the pt.
--- NOTE | 2019-04-17 08:00 | NUR ---
Initial note: Patient is alert, oriented x4, seems angry doesn't want me to assess anything now. But he has no sign of any distress. Addendum: 04/17/19 at 1849 by Ernesto Garcia RN Patient uses towel to absorb urine from Suprapubic ostomy, refuses any help. He wants to do his own way. When I try to check or move something in his room he starts to yield and scream on me.
[2019-04-17 08:21] VITALS: BP_SYST 148
[2019-04-17] MEDS: cloNIDine HCL 0.2 MG TABLET PO SCH ×2 (09:13→21:19)
--- NOTE | 2019-04-17 10:30 | NUR ---
Nutrition: Patient request to have Ensure 2 cans per meal. Call the kitchen and request to have dietitian come and speak to him.
[2019-04-17 11:39] VITALS: BP_SYST 141
[2019-04-17] MEDS: BALSAM PERU/CASTOR OIL 60 GM OINT...G. TP SCH (14:46)
--- NOTE | 2019-04-17 15:30 | NUR ---
WOUND RE-EVALUATION: Late note for 1529 secondary to patient care. Wound Consult received from Dr. Xie. Thank you, Dr. Xie, for the consult. Patient received in a Katrina Bed with an Isoflex DEB mattress with low air-loss therapy initiated, awake, alert, and oriented. Patient is able to turn in bed independently. Thomas Score is a 14. Past Medical History: Paraplegia secondary to Spinal Cord Injury, Stage 4 decubitus ulcer of the Coccyx, Neurogenic Bladder, status post Suprapubic Catheter placement. Admitted for dysfunction of the Suprapubic Catheter and generalized weakness. Microbiology: Wound culture results positive for Klebsiella pneumoniae and MRSA. MRSA screen results positive. Intrinsic factors that delay wound healing: Extrinsic factors that delay wound healing: Decreased mobility. Patient was initially nice but became agitated when the nurse was going to the [facility] to look for wound care supplies and yelled "Don't look in my stuff!" The patient was then agitated throughout the rest of the treatment, yelling and cussing swear words, and said we did not know what we are doing, and he proceeded to do the wound care himself (applying copius amounts of Venelex, gauze and paper tape. Nothing was applied by the patient to protect the mahesh-wound). Per CALVIN Orozco, the patient had refused wound care earlier. The patient initially refused wound care when the wound hiv/aids care nurse arrived with the RN for this assessment. Wound Assessment: 1. Left Buttock/Ischium area: Unstageable pressure ulcer, present on admission. Wound bed has 75% yellow slough, 15% red tissue, 10% brown eschar. No odor, no drainage. Periwound is macerated. Surrounding tissue has scar tissue. Undermining present from 102 o'clock (3.0 cm at 12 o'clock). Wound measures 9.8 cm x 7.4 cm x 1.9 cm. Recommend continue: Cleanse wound with normal saline. Apply moisture barrier cream to mahesh-wound. Apply Venelex ointment to wound bed. Pack wound with 1/4 inch Iodoform packing strip. Cover with Sacral (butterfly) foam dressing. Perform wound care daily, and as needed for dressing soiling or dislodgement. 2. Right Lateral Hip near Femoral Head and Greater Trochanter: Unstageable pressure ulcer, present on admission. Wound bed has 80% yellow slough, 10% red tissue, 10% black eschar. No odor, no drainage. Periwound is intact. Surrounding tissue has scar tissue. Wound measures 7.7 cm x 6.6 cm x 0.5 cm. Recommend continue: Cleanse wound with normal saline. Apply SurePrep to mahesh-wound. Apply Venelex ointment to wound bed. Cover with Sacral (butterfly) foam dressing. Perform wound care daily, and as needed for dressing soiling or dislodgement. 3. Left Mid Posterior Thigh: Unstageable pressure ulcer, present on admission. Wound bed has 80% yellow slough, 20% pink tissue. No odor, no drainage. Periwound is intact. Surrounding tissue has scar tissue. Wound measures 1.4 cm x 1.5 cm x 0.5 cm. Recommend continue: Cleanse wound with normal saline. Apply SurePrep to mahesh-wound. Apply Venelex ointment to wound bed. Cover with foam dressing. Perform wound care daily, and as needed for dressing soiling or dislodgement. 4. Left Lateral Knee near Tibial Plateau: Unstageable pressure ulcer, present on admission. Wound bed has 75% yellow slough, 15% dull red tissue, 10% black tissue. No odor, no drainage. Periwound is intact. Surrounding tissue has scar tissue. Wound measures 1.0 cm x 1.0 cm. Recommend continue: Cleanse wound with normal saline. Apply moisture barrier cream to mahesh-wound. Apply Venelex ointment to wound bed. Cover with foam dressing. Perform wound care daily, and as needed for dressing soiling or dislodgement. Also recommend continue: Encourage and assist patient as needed with repositioning side to side only every 2 hours with pillow support and off-load pressure areas with pillows for pressure re-distribution. Offload, elevate and float bilateral heels with pillows. Perform skin care and monitor skin integrity Q shift. Use moisture barrier cream on buttocks and other moisture susceptible areas QID and as needed for soiling. Maintain patient on low air-loss therapy. Recommend surgical consult.
--- NOTE | 2019-04-17 15:30 | NUR ---
Wound care: Walk in to the room with MARKIE Montague, inform the patient that we need to change his dressing on his wounds. But he is angry doesn't want us to touch him. Explain to him how important to get the dressing changed daily and correct way. He is finally agree for the wound care, but during changing the wound he become more angry refusing we put the dressing as ordered . He ends up put Venelex ointment on dry gauzes and apply to wounds by himself. He doesn't allow up to do it for him.
--- NOTE | 2019-04-17 18:45 | NUR ---
round: Dr. Xie makes round but he has no new order.
--- NOTE | 2019-04-17 18:46 | NUR ---
Closing note: Patient is stable, no sign of distress, resting well, no any complaint at this time.
--- NOTE | 2019-04-17 19:20 | NUR ---
OPENING NOTES Pt and endorsement received from day shift nurse. Pt is awake, alert, oriented and lying in bed. Pt on saline lock on CHAPARRO PICC. No complains of pain or discomfort at this time. No signs of acute distress or SOB noted. Encouraged to use call light when needed. Pt refused side rail on the right side of head to be raised, educated pt on safety and pt verbalized understanding but still refused. Safety precautions in place with 1 side of left side rail up, wheels locked, and bed in lowest level. Call light with pt. Will continue to monitor.
[2019-04-17 21:11] VITALS: BP_SYST 144
[2019-04-17] MEDS: SOD FERRIC GLUC COMPLEX/SUC 125 MG in NS 100 ML IV SCH (21:24)
--- NOTE | 2019-04-17 21:25 | NUR ---
MED PASS All due meds given. Pt also complained of pain on buttocks and hips with a scale of 8/10. [place] 10-325mg PO given as ordered. No signs of acute distress noted. Will continue to monitor.
--- NOTE | 2019-04-17 23:35 | NUR ---
ROUNDS Pt is AAox4 and lying in bed while watching tv. No complains of pain at this time. No signs of acute distress noted. Coffee given per pt's request. Will continue to monitor.
[2019-04-18 00:35] VITALS: BP_SYST 150
[2019-04-18] MEDS: CALCIUM CARBONATE 500 MG/ TAB.CHEW PO PRN (01:51)
--- NOTE | 2019-04-18 03:18 | NUR ---
ROUNDS Pt is resting in bed with both eyes closed, with visible chest rise and fall with non-labored breathing noted. Pt is easily arousable. No signs of acute distress or SOB noted. No needs at this time. Call light with pt. Will continue to monitor.
[2019-04-18] MEDS: PIPERACILLIN/TAZO 3.375/DEX-IS 50 ML IV SCH ×4 (05:11→23:04)
[2019-04-18] MEDS: HYDROcodone/ACETAMIN 10-325 MG TAB PO PRN ×2 (05:23→11:15)
--- NOTE | 2019-04-18 05:23 | NUR ---
PAIN MED Pt complained of buttocks and hip pain with a scale of 8/10. [place] 10-325mg PO given as ordered. No signs of acute distress noted. Will continue to monitor.
--- NOTE | 2019-04-18 06:25 | NUR ---
CLOSING NOTES Pt is AAOx4, lying in bed. No complains of pain at this time. No signs of acute distress or SOB noted. All needs attended throughout the shift. Safety precautions in place with 1 rail up on left side of head part, wheels locked, and bed in lowest level. Call light with pt. Will endorse to day shift nurse.
--- NOTE | 2019-04-18 07:30 | NUR ---
INITIAL NOTE PT AWAKE, ON ROOM AIR. DENIES ANY PAIN OR DISCOMFORT AT THIS TIME. CALL LIGHT WITHIN REACH, BED IN LOW AND LOCKED POSITION WITH BED ALARM ON. ISOLATION PRECAUTIONS IN PLACE.
[2019-04-18 08:00] VITALS: BP_SYST 130
--- NOTE | 2019-04-18 09:30 | NUR ---
MORNING MEDICATIONS PT TOOK ALL MORNING MEDICATIONS. VSS. REFILLED WATER BASIN WITH ICE. WILL CONTINUE TO MONITOR.
[2019-04-18] MEDS: BALSAM PERU/CASTOR OIL 60 GM OINT...G. TP SCH (09:38)
[2019-04-18] MEDS: cloNIDine HCL 0.2 MG TABLET PO SCH ×2 (09:38→21:31)
--- NOTE | 2019-04-18 10:45 | NUR ---
Discharge Planning: DCP faxed pt referral to [facility], [facility], [facility] Loya, [facility], [facility], [facility], [facility], [facility],[place], [place], [facility], [facility] [place] DCP to follow up.
--- NOTE | 2019-04-18 11:25 | NUR ---
PAIN MEDICATIONS PT COMPLAINING OF PAIN. EDUCATED PT ON USES AND SIDE EFFECTS OF NORCO. PT VERBALIZED UNDERSTANDING. PRN NORCO INDICATED FOR PAIN, NORCO ADMINISTERED.
[2019-04-18 12:18] VITALS: BP_SYST 138
--- NOTE | 2019-04-18 14:25 | NUR ---
REFUSED WOUND CARE PT REFUSED WOUND CARE AND REQUESTED SUPPLIES TO DO HIS OWN WOUND CARE. WOUND CARE SUPPLIES GIVEN.
--- NOTE | 2019-04-18 16:25 | NUR ---
RN ROUNDS PT DID OWN WOUND CARE. DRESSING NEW, DRY AND INTACT. PT DENIES ANY PAIN OR DISCOMFORT AT THIS TIME. WILL CONTINUE TO MONITOR.
[2019-04-18 16:30] VITALS: BP_SYST 130
[2019-04-18] MEDS: VANCOMYCIN HCL 750 MG in NS 250 ML IV SCH (17:16)
--- NOTE | 2019-04-18 18:35 | NUR ---
CLOSING NOTE PT AWAKE, SITTING UP IN BED. PT DENIES ANY PAIN OR DISCOMFORT AT THIS TIME. ALL NEEDS MET THROUGH OUT SHIFT. CALL LIGHT WITHIN REACH, BED IN LOW AND LOCKED POSITION WITH BED ALARM ON. ISOLATION PRECAUTIONS IN PLACE. WILL CONTINUE TO MONITOR UNTIL PT CARE IS ENDORSED TO DIGITAL MEDIA COORDINATOR RN.
--- NOTE | 2019-04-18 19:17 | NUR ---
OPENING NOTES Pt and endorsement received from day shift nurse. Pt is resting in bed with both eyes closed, with visible chest rise and fall with non-labored breathing noted. Pt on saline lock on CHAPARRO PICC. No complains of pain or discomfort at this time. No signs of acute distress or SOB noted. Safety precautions in place with 1 of left side rail up, wheels locked, and bed in lowest level. Call light with pt. Will continue to monitor.
[2019-04-18 21:30] VITALS: BP_SYST 148
--- NOTE | 2019-04-18 21:31 | NUR ---
ROUNDS All due meds given. Encouraged pt to use call light when needed. Pt refused side rail on the right side of head to be raised, educated pt on safety and pt verbalized understanding but still refused. Call light with pt. Will continue to monitor.
--- NOTE | 2019-04-18 22:26 | NUR ---
SPOKE TO DR. XIE Spoke to Dr. Xie about pt complaining of pain. Told him he had [place] but was discontinued, I asked him if he wants to order a pain med but he said "No." Read back order and will carry out.
--- NOTE | 2019-04-19 01:30 | NUR ---
ROUNDS Pt is AAox4 and lying in bed while watching tv. No complains of pain at this time. No signs of acute distress noted. Will continue to monitor.
--- NOTE | 2019-04-19 03:54 | NUR ---
ROUNDS Pt is resting in bed with both eyes closed, with visible chest rise and fall with non-labored breathing noted. No complains of pain and no signs of acute distress noted. Safety precautions in place with 1 side rail up, wheels locked, and bed in lowest level. Call light with pt. Will continue to monitor.
[2019-04-19 04:34] VITALS: BP_SYST 160
[2019-04-19] MEDS: PIPERACILLIN/TAZO 3.375/DEX-IS 50 ML IV SCH ×3 (05:06→17:10)
[2019-04-19] MEDS: VANCOMYCIN HCL 750 MG in NS 250 ML IV SCH ×2 (05:13→18:19)
--- NOTE | 2019-04-19 06:31 | NUR ---
CLOSING NOTES Pt is resting in bed with both eyes closed, with visible chest rise and fall with non-labored breathing noted. No complains of pain at this time. No signs of acute distress or SOB noted. All needs attended throughout the shift. Safety precautions in place with 1 side rail up, wheels locked, and bed in lowest level. Call light with pt. Will endorse to day shift nurse.
--- NOTE | 2019-04-19 07:30 | NUR ---
Opening Notes Patient received alert, awake and verbally responsive. Denies any pain or discomfort at this time. Able to verbalize needs and concerns. Respiration even and unlabored. PICC line in place and intact. Discussed plan of care and using of call light, patient verbalized understanding. Call light within the reach. Will continue to monitor.
[2019-04-19 08:00] VITALS: BP_SYST 145
[2019-04-19] MEDS: cloNIDine HCL 0.2 MG TABLET PO SCH ×2 (08:58→21:00)
[2019-04-19] MEDS: BALSAM PERU/CASTOR OIL 60 GM OINT...G. TP SCH (08:59)
--- NOTE | 2019-04-19 09:10 | NUR ---
Medication administration Patient educated on medication usage and its potential side effects, patient verbalized understanding. Patient verbalized he will do his wound dressing, offered to do it but patient refused. Call light within the reach.
--- NOTE | 2019-04-19 11:30 | NUR ---
RN ROUNDS Patient resting well, denies any pain or discomfort. Respiration even and unlabored. Call light within the reach.
--- NOTE | 2019-04-19 13:30 | NUR ---
RN ROUNDS Patient remain to be alert, awake and verbally responsive. Suprapubic stoma intact, continuos urine drainage coming out. Colostomy bag in place and intact. Call light within the reach.
--- NOTE | 2019-04-19 15:00 | NUR ---
Refused wound dressing changed Encouraged patient to do wound dressing, patient refused and stated "I will do it myself", explained risks and benefits, patient verbalized understanding. Provided rest and comfort. Call light within the reach.
[2019-04-19 15:40] VITALS: BP_SYST 146
--- NOTE | 2019-04-19 17:07 | NUR ---
DCP faxed pt referral to: [facility] Card[facility]-[place] checking on benefits [place]-declined pt [place]-checking for ISO room [place]-only sub acute Kylee Escobar- DCP to follow up
--- NOTE | 2019-04-19 17:30 | NUR ---
RN ROUNDS Patient currently watching tv, denies any pain or discomfort. Respiration even and unlabored. Call light within the reach,
--- NOTE | 2019-04-19 18:56 | NUR ---
Closing Notes Patient remain to be alert, awake and verbally responsive, able to verbalize needs and concerns. Respiration even and unlabored. Wound dressing in place and intact, unable to witness wound dressing change, patient didn't change it on my shift. Vancomycin IVPB infusing well. Colostomy bag in place and intact, suprapubic stoma intact. Call light within the reach. Will endorse to the next shift.
--- NOTE | 2019-04-19 19:40 | NUR ---
ROUNDS PATIENT RESTING COMFORTABLY IN BED, WATCHING TV, NOT IN DISTRESS, VITALS STABLE. DENIES ANY PAIN AND DISCOMFORT AT THIS TIME. PATIENT REFUSED SKIN ASSESSMENT AND VITALS AT THIS TIME. NEEDS ATTENDED TO. SAFETY AND FALL MEASURES IN PLACED. BED IN LOW AND LOCKED POSITION. REFUSE DBED ALARM ON. CALL LIGHT PLACED WITHIN REACH.
--- NOTE | 2019-04-19 21:00 | NUR ---
MEDICATION PATIENT REFUSED SCHEDULED CATAPRES AT THIS TIME. RISKS AND BENEFITS EXPLAINED. WILL CONTINUE TO MONITOR.
--- NOTE | 2019-04-20 00:12 | NUR ---
PATIENT RESTING: Patient resting quietly. No acute distress noted. Vital signs within normal range.
[2019-04-20] MEDS: PIPERACILLIN/TAZO 3.375/DEX-IS 50 ML IV SCH ×2 (00:41→05:31)
--- NOTE | 2019-04-20 01:25 | NUR ---
NOTES PATIENT REFUSED WOUND DRESSING AT THIS TIME. WILL CONTINUE TO MONITOR.
--- NOTE | 2019-04-20 04:12 | NUR ---
PATIENT RESTING: Patient resting quietly. No acute distress noted. Vital signs within normal range.
--- NOTE | 2019-04-20 06:51 | NUR ---
CLOSING NOTES PATIENT AWAKE, VITALS STABLE, NO COMPLAINTS AT THIS TIME. ALL NEEDS ATTENDED TO. SAFETY AND FALL MEASURES MAINTAINED. BED IN LOW AND LOCKED POSITION. CALL LIGHT PLACED WITHIN REACH.
--- NOTE | 2019-04-20 08:00 | NUR ---
Patient is A/Ox4, but appears anxious and irritable. Refuses assessment and V/S. States he wants to leave AMA. Will awaiting charge nurse for confirmation.
[2019-04-20] MEDS: BALSAM PERU/CASTOR OIL 60 GM OINT...G. TP SCH (09:00)
[2019-04-20] MEDS: cloNIDine HCL 0.2 MG TABLET PO SCH (09:00)
--- NOTE | 2019-04-20 10:10 | NUR ---
AMA: Patient does not wish to proceed with medical care recommended by Dr. Xie. Patient given information related to possible complications such as worsening infection, up to and including , which could occur as a result of leaving hospital at this time. Patient verbalizes understanding of risks involved leaving against medical advice. Patient has signed AMA form.
[2019-04-20] MEDS ORDERED: VANCOMYCIN HCL 750 MG in NS 250 ML IV SCH (11:00)
== END 2019-04-20 10:10 | disposition left against medical advice (07) | DRG 393 ==
LOC: SED 17:39 → SMU 20:59
PROVIDERS: ADMIT Family Medicine; ATTEND Family Medicine
PROC: 5A1935Z Respiratory Ventilation, Less than 24 Consecutive Hours (ICD-10-PCS; 2019-04-09)
PROC: 30233N1 Transfusion of Nonautologous Red Blood Cells into Peripheral Vein, Percutaneous Approach (ICD-10-PCS; 2019-04-10)
PROC: 02HV33Z Insertion of Infusion Device into Superior Vena Cava, Percutaneous Approach (ICD-10-PCS; principal; 2019-04-14)
PROC: B548ZZA Ultrasonography of Superior Vena Cava, Guidance (ICD-10-PCS; 2019-04-14)
DX: K94.23 Gastrostomy malfunction (principal); L89.154 Pressure ulcer of sacral region, stage 4; E43 Unspecified severe protein-calorie malnutrition; T83.010A Breakdown (mechanical) of cystostomy catheter, initial encounter; G82.20 Paraplegia, unspecified; D50.9 Iron deficiency anemia, unspecified; I10 Essential (primary) hypertension; N31.9 Neuromuscular dysfunction of bladder, unspecified; Z53.29 Procedure and treatment not carried out because of patient's decision for other reasons; Y73.8 Miscellaneous gastroenterology and urology devices associated with adverse incidents, not elsewhere classified; Z68.22 Body mass index [BMI] 22.0-22.9, adult; Z79.899 Other long term (current) drug therapy; Y92.89 Other specified places as the place of occurrence of the external cause
CPT/HCPCS: 36415; 71045; 80048; 80053; 80202-TC; 82607; 82728; 82746; 83540-TC; 83550-TC; 85025; 85610-TC; 85730-TC; 86886; 86900; 86901; 86920; 87070-TC; 87081; 87186-TC; 96374; 99284; A5061; C1751; J1885; J2543; J2916; J7030; J7050; P9021

== ENCOUNTER 2020-04-07 06:54 | Inpatient (IN) | payer OTHER, MEDICAID, SELFPAY ==
[~2020-04-07] VITALS: Ht 167.6 cm; Wt 59.4 kg
[2020-04-07 07:00] VITALS: BP_SYST 141
[2020-04-07 09:00] LABS: BASOPHILS # (AUTO) 0.1 K/uL (0.0-0.2); BASOPHILS % (AUTO) 0.9 % (0.0-2.0); EOSINOPHILS # (AUTO) 0.8 K/uL (0.0-0.4); EOSINOPHILS % (AUTO) 7.9 % (0.0-4.0); HEMATOCRIT 36.9 % (36-54); LYMPHOCYTES # (AUTO) 1.1 K/uL (1.0-5.5); MEAN CORPUSCULAR HEMOGLOBIN 25 pg (27-31); MEAN CORPUSCULAR HGB CONC 33 % (32-36); MEAN CORPUSCULAR VOLUME 77 fL (79.0-98.0); MONOCYTES # (AUTO) 0.9 K/uL (0.0-1.0); MONOCYTES % (AUTO) 8.5 % (1.7-9.3); NEUTROPHILS # (AUTO) 7.7 K/uL (1.8-7.7); NEUTROPHILS % (AUTO) 72.7 % (40.0-70.0); PLATELET COUNT (AUTO) 424 K/uL (130-430); RED BLOOD CELL COUNT(AUTO) 4.78 MIL/uL (4.2-6.2); RED CELL DISTRIBUTION WIDTH 18.6 % (9.0-15.0); WHITE BLOOD COUNT (AUTO) 10.6 K/uL (4.8-10.8)
[2020-04-07 09:14] LABS: CREATININE 1.24 mg/dL (0.55-1.30); POTASSIUM 3.4 mmol/L (3.5-5.1)
[2020-04-07 09:20] LABS: ALBUMIN 2.9 g/dL (3.4-4.8); TOTAL BILIRUBIN 0.8 mg/dL (0.0-1.0)
[2020-04-07 10:17] LABS: BILIRUBIN,URINE NEGATIVE (NEGATIVE); BLOOD, URINE 3+ (NEGATIVE); CLARITY/URINE CLOUDY (CLEAR); COLOR,URINE YELLOW (YELLOW); GLUCOSE,URINE NEGATIVE (NEGATIVE); KETONES,URINE NEGATIVE (NEGATIVE); LEUKOCYTE ESTERASE ,URINE 1+ (NEGATIVE); NITRITE, URINE NEGATIVE (NEGATIVE); PROTEIN URINE 1+ (NEGATIVE); UROBILINOGEN,URINE 0.2 (0.2-1.0)
[2020-04-07 10:27] LABS: BACTERIA,URINE MODERATE /HPF (None Seen); RBC,URINE 20-50 /HPF (0-3); WBC,URINE 20-50 /HPF (0-3)
[2020-04-07] MEDS ORDERED: cefTRIAXone 1 GM IVPB PREMIX 50 ML IV ONE (10:45)
[2020-04-07] MEDS ORDERED: NACL 0.9% 1,000 ML IV ONE (10:45)
[2020-04-07] MEDS ORDERED: ACETAMINOPHEN 325 MG TABLET PO PRN ×2 (11:30→12:00)
[2020-04-07 12:25] VITALS: BP_SYST 133
[2020-04-07 13:00] VITALS: BP_SYST 133
[2020-04-07] MEDS ORDERED: NALOXONE HCL 0.4 MG/ML AMP (NARCAN) IVP PRN (13:45)
[2020-04-07 16:06] VITALS: BP_SYST 136
[2020-04-07] MEDS: POTASSIUM CHLORIDE 10 MEQ TAB.PRT.SR PO ONE ×3 (17:30→18:04)
[2020-04-07 19:21] LABS: INR 1.1 (0.80-1.20); PROTHROMBIN TIME 11.3 SECS (9.5-12.5)
[2020-04-07] MEDS: HYDROcodone/ACETAMIN 5-325 MG TAB (NORCO/ VICODIN) PO PRN (20:17)
[2020-04-07] MEDS: CEFEPIME 1 GM in D5W 50 ML IV SCH (20:17)
[2020-04-07 20:34] VITALS: BP_SYST 148
[2020-04-07] MEDS ORDERED: HYDROcodone/ACETAMIN 5-325 MG TAB (NORCO/ VICODIN) PO PRN (21:00)
[2020-04-08 00:29] VITALS: BP_SYST 138
[2020-04-08 08:55] LABS: BASOPHILS % (AUTO) 0.4 % (0.0-2.0); EOSINOPHILS # (AUTO) 0.9 K/uL (0.0-0.4); HEMATOCRIT 34.1 % (36-54); HEMOGLOBIN 11.1 g/dL (14.0-18.0); LYMPHOCYTES % (AUTO) 26.6 % (20.5-51.5); MEAN CORPUSCULAR HEMOGLOBIN 25 pg (27-31); MEAN CORPUSCULAR HGB CONC 33 % (32-36); MEAN CORPUSCULAR VOLUME 77 fL (79.0-98.0); MONOCYTES # (AUTO) 0.7 K/uL (0.0-1.0); MONOCYTES % (AUTO) 9.3 % (1.7-9.3); NEUTROPHILS # (AUTO) 3.9 K/uL (1.8-7.7); NEUTROPHILS % (AUTO) 51.7 % (40.0-70.0); PLATELET COUNT (AUTO) 359 K/uL (130-430); RED BLOOD CELL COUNT(AUTO) 4.41 MIL/uL (4.2-6.2); RED CELL DISTRIBUTION WIDTH 18.8 % (9.0-15.0); WHITE BLOOD COUNT (AUTO) 7.5 K/uL (4.8-10.8)
[2020-04-08 08:57] LABS: ALBUMIN 2.4 g/dL (3.4-4.8); CALCIUM 8.4 mg/dL (8.4-11.0); CREATININE 0.8 mg/dL (0.55-1.30); POTASSIUM 3.3 mmol/L (3.5-5.1); THYROID STIMULATING HORMONE 0.9 uIu/mL (0.36-3.74); TOTAL BILIRUBIN 0.5 mg/dL (0.0-1.0)
[2020-04-08] MEDS ORDERED: POTASSIUM CHLORIDE 20 MEQ TAB.PRT.SR PO ONE (09:15)
[2020-04-08] MEDS ORDERED: MAG-AL HYDROX/SIMETH 30 ML UDC ONE (10:53)
[2020-04-08] MEDS: MAG-AL HYDROX/SIMETH 30 ML UDC PO PRN (10:58)
[2020-04-08] MEDS: CEFEPIME 1 GM in D5W 50 ML IV SCH ×2 (10:59→21:55)
[2020-04-08 11:12] VITALS: BP_SYST 134
[2020-04-08] MEDS ORDERED: PANTOPRAZOLE SODIUM 40 MG TAB PO ONE (15:45)
[2020-04-08] MEDS ORDERED: ZOLPIDEM TARTRATE 5 MG TABLET PO PRN (17:45)
[2020-04-08 21:06] VITALS: BP_SYST 160
[2020-04-08] MEDS: HYDROcodone/ACETAMIN 5-325 MG TAB (NORCO/ VICODIN) PO PRN (21:20)
[2020-04-08] MEDS ORDERED: LORazepam 1 MG TABLET PO ONE (21:30)
[2020-04-08] MEDS: TEMAZEPAM 7.5 MG CAPSULE PO PRN (22:55)
[2020-04-09] MEDS: MAG-AL HYDROX/SIMETH 30 ML UDC PO PRN (02:22)
[2020-04-09 04:37] VITALS: BP_SYST 144
[2020-04-09 07:32] LABS: CALCIUM 8.1 mg/dL (8.4-11.0); CREATININE 0.82 mg/dL (0.55-1.30); POTASSIUM 3.1 mmol/L (3.5-5.1)
[2020-04-09] MEDS: PANTOPRAZOLE SODIUM 40 MG TAB PO SCH (10:44)
[2020-04-09] MEDS: CEFEPIME 1 GM in D5W 50 ML IV SCH ×2 (10:44→21:47)
[2020-04-09] MEDS ORDERED: POTASSIUM CHLORIDE 20 MEQ TAB.PRT.SR PO ONE (10:45)
[2020-04-09 10:54] VITALS: BP_SYST 140
[2020-04-09] MEDS ORDERED: HYDROcodone/ACETAMIN 5-325 MG TAB (NORCO/ VICODIN) ONE (11:40)
[2020-04-09] MEDS: HYDROcodone/ACETAMIN 5-325 MG TAB (NORCO/ VICODIN) PO PRN ×2 (11:47→21:57)
[2020-04-09 15:31] VITALS: BP_SYST 150
[2020-04-09] MEDS ORDERED: LIDOCAINE JECT IV ONE (18:00)
[2020-04-09] MEDS ORDERED: FLUCONAZOLE 100 mg/ NS 50 ML IV SCH (18:00)
[2020-04-09] MEDS ORDERED: POTASSIUM CHLORIDE IV ONE (18:00)
[2020-04-09] MEDS ORDERED: NS IV ONE (18:00)
[2020-04-09 21:48] VITALS: BP_SYST 165
[2020-04-09] MEDS: TEMAZEPAM 7.5 MG CAPSULE PO PRN (21:57)
[2020-04-10] MEDS: MAG-AL HYDROX/SIMETH 30 ML UDC PO PRN (02:27)
[2020-04-10 08:09] LABS: CALCIUM 8.3 mg/dL (8.4-11.0); CREATININE 0.72 mg/dL (0.55-1.30)
[2020-04-10] MEDS: CEFEPIME 1 GM in D5W 50 ML IV SCH (08:59)
[2020-04-10] MEDS: PANTOPRAZOLE SODIUM 40 MG TAB PO SCH ×2 (08:59→09:00)
[2020-04-10] MEDS ORDERED: cloNIDine HCL 0.1 MG TABLET PO PRN (09:30)
[2020-04-10] MEDS ORDERED: MAG-AL HYDROX/SIMETH 30 ML UDC PO PRN (11:30)
== END 2020-04-10 15:10 | disposition left against medical advice (07) | DRG 698 ==
LOC: SED 06:54 → SMU 11:15
PROVIDERS: ADMIT Internal Medicine; ATTEND Internal Medicine
PROC: 0T2BX0Z Change Drainage Device in Bladder, External Approach (ICD-10-PCS; principal; 2020-04-07)
DX: T83.090A Other mechanical complication of cystostomy catheter, initial encounter (principal); L89.154 Pressure ulcer of sacral region, stage 4; N39.0 Urinary tract infection, site not specified; E87.1 Hypo-osmolality and hyponatremia; G82.20 Paraplegia, unspecified; E44.0 Moderate protein-calorie malnutrition; M86.8X8 Other osteomyelitis, other site; W19.XXXA Unspecified fall, initial encounter; N31.9 Neuromuscular dysfunction of bladder, unspecified; E86.0 Dehydration; Z53.29 Procedure and treatment not carried out because of patient's decision for other reasons; B37.9 Candidiasis, unspecified; L89.309 Pressure ulcer of unspecified buttock, unspecified stage; Z20.828 Contact with and (suspected) exposure to other viral communicable diseases; Y73.8 Miscellaneous gastroenterology and urology devices associated with adverse incidents, not elsewhere classified; Y83.8 Other surgical procedures as the cause of abnormal reaction of the patient, or of later complication, without mention of misadventure at the time of the procedure; Y92.89 Other specified places as the place of occurrence of the external cause; Y93.89 Activity, other specified; Z59.0 Homelessness; Y99.8 Other external cause status; Z93.3 Colostomy status; Z68.21 Body mass index [BMI] 21.0-21.9, adult
CPT/HCPCS: 36415; 80048; 80053; 81000-TC; 83605; 83735-TC; 84443-TC; 85025; 85610-TC; 85730-TC; 87040-TC; 87081; 87086; 93005; 96361; 96365; 99285; J0692; J0696; J1450; J3480; J7050; J7060

== ENCOUNTER 2020-05-03 14:25 | Inpatient (IN) | payer OTHER, MEDICAID, SELFPAY ==
[~2020-05-03] VITALS: Ht 175.3 cm; Wt 49.0 kg
[2020-05-03 15:00] VITALS: BP_SYST 105
[2020-05-03] MEDS ORDERED: NACL 0.9% 1,000 ML IV ONE (16:30)
[2020-05-03 17:29] LABS: HEMOGLOBIN 10.9 g/dL (14.0-18.0); MEAN CORPUSCULAR HEMOGLOBIN 24 pg (27-31); MEAN CORPUSCULAR HGB CONC 33 % (32-36); MEAN CORPUSCULAR VOLUME 73 fL (79.0-98.0); PLATELET COUNT (AUTO) 672 K/uL (130-430); RED BLOOD CELL COUNT(AUTO) 4.51 MIL/uL (4.2-6.2); RED CELL DISTRIBUTION WIDTH 19.3 % (9.0-15.0); WHITE BLOOD COUNT (AUTO) 28.5 K/uL (4.8-10.8)
[2020-05-03] MEDS ORDERED: VANCOMYCIN HCL 1,000 MG in NS 250 ML IV ONE (17:45)
[2020-05-03] MEDS ORDERED: MEROPENEM 1 GM IVPB PREMIX 50 ML IV ONE (17:45)
[2020-05-03 18:10] LABS: ALBUMIN 1.8 g/dL (3.4-4.8); CREATININE 5.13 mg/dL (0.55-1.30); TOTAL BILIRUBIN 0.4 mg/dL (0.0-1.0)
[2020-05-03 18:11] LABS: POTASSIUM 6.4 mmol/L (3.5-5.1)
[2020-05-03 18:20] LABS: BAND % (MANUAL) 9 % (0-6); BASOPHILS % (MANUAL) 0 % (0-2); EOSINOPHILS % (MANUAL) 0 % (0-7); LYMPHOCYTES % (MANUAL) 5 % (20-46); MONOCYTES % (MANUAL) 2 % (0-11)
[2020-05-03] MEDS ORDERED: NACL 0.9% 2,000 ML IV ONE (19:15)
[2020-05-03] MEDS ORDERED: DEXTROSE 50% JECT 50 ML DISP.SYRIN IVP ONE (19:30)
[2020-05-03] MEDS ORDERED: INSULIN REGULAR, HUMAN 10 UNITS/0.1 ML INJ IVP ONE (19:30)
[2020-05-03] MEDS ORDERED: LORazepam 2 MG/ML VIAL ONE (20:11)
[2020-05-03] MEDS ORDERED: LORazepam 2 MG/ML VIAL IM ONE (20:15)
[2020-05-03] MEDS ORDERED: HALOPERIDOL LACTATE 5 MG/ML VIAL ONE (22:09)
[2020-05-03] MEDS ORDERED: METOCLOPRAMIDE HCL 10 MG/2 ML VIAL ONE (22:22)
[2020-05-03] MEDS ORDERED: MEROPENEM 500 MG VIAL IV ONE (23:59)
[2020-05-04] MEDS ORDERED: VANCOMYCIN HCL 1000 MG/VIAL IV ONE
[2020-05-04] MEDS ORDERED: PIPERACILLIN/TAZOBACTAM 3.375 GM/VIAL (ZOSYN) IV ONE ×2 (00:08→06:56)
[2020-05-04] MEDS ORDERED: HALOPERIDOL LACTATE 5 MG/ML VIAL IM ONE (00:30)
[2020-05-04] MEDS ORDERED: METOCLOPRAMIDE HCL 10 MG/2 ML VIAL IM ONE (00:30)
[2020-05-04] MEDS: PIPERACILLIN/TAZO 3.375/DEX-IS 50 ML IV SCH ×3 (00:47→13:01)
[2020-05-04] MEDS ORDERED: SODIUM ZIRCONIUM CYCLOSILICATE 10 GM POWD.PACK PO ONE ×2 (02:15→19:00)
[2020-05-04] MEDS ORDERED: ACETAMINOPHEN 325 MG TABLET PO PRN (02:15)
[2020-05-04] MEDS ORDERED: LORazepam 2 MG/ML VIAL IVP PRN (02:15)
[2020-05-04] MEDS: NACL 0.9% 1,000 ML IV SCH ×2 (02:15→23:26)
[2020-05-04] MEDS ORDERED: NALOXONE HCL 0.4 MG/ML AMP (NARCAN) IVP PRN (02:15)
[2020-05-04 05:00] VITALS: BP_SYST 117
[2020-05-04 10:43] LABS: BASOPHILS % (AUTO) 0.2 % (0.0-2.0); CALCIUM 8.1 mg/dL (8.4-11.0); CREATININE 4.22 mg/dL (0.55-1.30); EOSINOPHILS # (AUTO) 0.1 K/uL (0.0-0.4); EOSINOPHILS % (AUTO) 0.3 % (0.0-4.0); HEMATOCRIT 29.5 % (36-54); HEMOGLOBIN 9.6 g/dL (14.0-18.0); LYMPHOCYTES # (AUTO) 0.5 K/uL (1.0-5.5); LYMPHOCYTES % (AUTO) 2.2 % (20.5-51.5); MEAN CORPUSCULAR HEMOGLOBIN 24 pg (27-31); MEAN CORPUSCULAR HGB CONC 33 % (32-36); MEAN CORPUSCULAR VOLUME 73 fL (79.0-98.0); MONOCYTES # (AUTO) 0.9 K/uL (0.0-1.0); MONOCYTES % (AUTO) 4.3 % (1.7-9.3); NEUTROPHILS # (AUTO) 20.4 K/uL (1.8-7.7); PLATELET COUNT (AUTO) 590 K/uL (130-430); POTASSIUM 5.2 mmol/L (3.5-5.1); RED BLOOD CELL COUNT(AUTO) 4.04 MIL/uL (4.2-6.2); RED CELL DISTRIBUTION WIDTH 19.3 % (9.0-15.0)
[2020-05-04 10:47] LABS: PHOSPHORUS 5.2 mg/dL (2.7-4.5)
[2020-05-04 11:27] LABS: TOTAL IRON BIND. CAPACITY 104 ug/dL (250-450)
[2020-05-04 12:03] VITALS: BP_SYST 103
[2020-05-04 16:05] VITALS: BP_SYST 107
[2020-05-04] MEDS ORDERED: VANCOMYCIN HCL 1 GM/NS PREMIX 250 ML IV ONE (19:45)
[2020-05-04 20:00] VITALS: BP_SYST 121
[2020-05-04] MEDS: FLUCONAZOLE 100 mg/ NS 50 ML IV SCH (23:26)
[2020-05-05 00:47] VITALS: BP_SYST 110
[2020-05-05] MEDS: PIPERACILLIN/TAZO 3.375/DEX-IS 50 ML IV SCH ×4 (01:18→17:22)
[2020-05-05 08:00] VITALS: BP_SYST 109
[2020-05-05 09:50] LABS: INR 1.2 (0.80-1.20); PROTHROMBIN TIME 12.4 SECS (9.5-12.5)
[2020-05-05 10:28] LABS: CALCIUM 7.5 mg/dL (8.4-11.0); CREATININE 2.93 mg/dL (0.55-1.30); POTASSIUM 4.8 mmol/L (3.5-5.1)
[2020-05-05 10:43] LABS: VANCOMYCIN,RANDOM 25.8 ug/mL
[2020-05-05] MEDS: NACL 0.9% 1,000 ML IV SCH (12:38)
[2020-05-05 13:55] LABS: BASOPHILS # (AUTO) 0.1 K/uL (0.0-0.2); BASOPHILS % (AUTO) 0.7 % (0.0-2.0); EOSINOPHILS # (AUTO) 0.1 K/uL (0.0-0.4); EOSINOPHILS % (AUTO) 0.6 % (0.0-4.0); HEMATOCRIT 27.5 % (36-54); LYMPHOCYTES # (AUTO) 0.2 K/uL (1.0-5.5); LYMPHOCYTES % (AUTO) 2.2 % (20.5-51.5); MEAN CORPUSCULAR HEMOGLOBIN 24 pg (27-31); MEAN CORPUSCULAR HGB CONC 33 % (32-36); MEAN CORPUSCULAR VOLUME 73 fL (79.0-98.0); MONOCYTES # (AUTO) 0.7 K/uL (0.0-1.0); MONOCYTES % (AUTO) 6.2 % (1.7-9.3); PLATELET COUNT (AUTO) 518 K/uL (130-430); RED BLOOD CELL COUNT(AUTO) 3.78 MIL/uL (4.2-6.2); RED CELL DISTRIBUTION WIDTH 19.3 % (9.0-15.0); WHITE BLOOD COUNT (AUTO) 11.1 K/uL (4.8-10.8)
[2020-05-05 14:04] LABS: NEUTROPHILS % (AUTO) 90.3 % (40.0-70.0)
[2020-05-05 20:05] VITALS: BP_SYST 151
[2020-05-05] MEDS: HEPARIN SODIUM,PORCINE 5,000 UNITS/ML VIAL SUBCUT SCH (21:00)
[2020-05-05] MEDS: FLUCONAZOLE 100 mg/ NS 50 ML IV SCH (21:51)
[2020-05-05 22:57] LABS: BILIRUBIN,URINE NEGATIVE (NEGATIVE); BLOOD, URINE 3+ (NEGATIVE); CLARITY/URINE SL CLOUDY (CLEAR); COLOR,URINE YELLOW (YELLOW); GLUCOSE,URINE NEGATIVE (NEGATIVE); KETONES,URINE NEGATIVE (NEGATIVE); LEUKOCYTE ESTERASE ,URINE 2+ (NEGATIVE); NITRITE, URINE POSITIVE (NEGATIVE); PH,URINE 5.5 (5.0-8.0); PROTEIN URINE TRACE (NEGATIVE); UROBILINOGEN,URINE 0.2 (0.2-1.0)
[2020-05-05 23:03] LABS: RBC,URINE 20-50 /HPF (0-3)
[2020-05-05 23:04] LABS: BACTERIA,URINE MANY /HPF (None Seen); WBC,URINE >100 /HPF (0-3)
[2020-05-06] VITALS: BP_SYST 102
[2020-05-06] MEDS: NACL 0.9% 1,000 ML IV SCH ×2 (01:17→15:18)
[2020-05-06] MEDS: PIPERACILLIN/TAZO 3.375/DEX-IS 50 ML IV SCH ×4 (01:17→18:26)
[2020-05-06 07:22] LABS: URINE SODIUM, RANDOM 16 mmol/L (40-220)
[2020-05-06] MEDS: HEPARIN SODIUM,PORCINE 5,000 UNITS/ML VIAL SUBCUT SCH ×2 (09:00→22:13)
[2020-05-06 09:15] LABS: BASOPHILS % (AUTO) 0.2 % (0.0-2.0); EOSINOPHILS # (AUTO) 0.1 K/uL (0.0-0.4); EOSINOPHILS % (AUTO) 1.2 % (0.0-4.0); HEMOGLOBIN 8.6 g/dL (14.0-18.0); LYMPHOCYTES # (AUTO) 0.8 K/uL (1.0-5.5); LYMPHOCYTES % (AUTO) 10.2 % (20.5-51.5); MEAN CORPUSCULAR HEMOGLOBIN 24 pg (27-31); MEAN CORPUSCULAR HGB CONC 33 % (32-36); MEAN CORPUSCULAR VOLUME 73 fL (79.0-98.0); MONOCYTES % (AUTO) 12.4 % (1.7-9.3); NEUTROPHILS # (AUTO) 6.3 K/uL (1.8-7.7); PLATELET COUNT (AUTO) 485 K/uL (130-430); RED BLOOD CELL COUNT(AUTO) 3.57 MIL/uL (4.2-6.2); RED CELL DISTRIBUTION WIDTH 19.6 % (9.0-15.0)
[2020-05-06 09:16] LABS: CALCIUM 7.7 mg/dL (8.4-11.0); CREATININE 1.8 mg/dL (0.55-1.30); PHOSPHORUS 3.5 mg/dL (2.7-4.5); POTASSIUM 3.5 mmol/L (3.5-5.1)
[2020-05-06 09:57] LABS: WHITE BLOOD COUNT (AUTO) 8.3 K/uL (4.8-10.8)
[2020-05-06 11:48] LABS: VANCOMYCIN,RANDOM 17.5 ug/mL
[2020-05-06] MEDS ORDERED: ONDANSETRON HCL 4 MG/2 ML VIAL IVP PRN (12:00)
[2020-05-06] MEDS ORDERED: NACL 0.9% 1,000 ML IV SCH (12:00)
[2020-05-06] MEDS: MUPIROCIN 2% TOPICAL OINTMENT 22 GM NS SCH ×2 (13:30→22:15)
[2020-05-06] MEDS ORDERED: HYDROmorphone 1 MG INJ. 1 MG/ML AMPUL IVP PRN (13:45)
[2020-05-06] MEDS ORDERED: NALOXONE HCL 0.4 MG/ML AMP (NARCAN) IVP PRN (13:45)
[2020-05-06] MEDS ORDERED: HYDROmorphone 1 MG INJ. 1 MG/ML AMPUL ONE (13:52)
[2020-05-06 20:15] VITALS: BP_SYST 131
[2020-05-06] MEDS: TEMAZEPAM 7.5 MG CAPSULE PO PRN (22:14)
[2020-05-06] MEDS: FLUCONAZOLE 100 mg/ NS 50 ML IV SCH (22:15)
[2020-05-07] MEDS: PIPERACILLIN/TAZO 3.375/DEX-IS 50 ML IV SCH ×3 (01:29→13:16)
[2020-05-07] MEDS: NACL 0.9% 1,000 ML IV SCH (06:02)
[2020-05-07 10:27] VITALS: BP_SYST 131
[2020-05-07] MEDS: MUPIROCIN 2% TOPICAL OINTMENT 22 GM NS SCH ×2 (10:30→21:51)
[2020-05-07] MEDS: HEPARIN SODIUM,PORCINE 5,000 UNITS/ML VIAL SUBCUT SCH ×2 (10:32→21:51)
[2020-05-07 14:58] LABS: BASOPHILS % (AUTO) 0.3 % (0.0-2.0); EOSINOPHILS # (AUTO) 0.1 K/uL (0.0-0.4); EOSINOPHILS % (AUTO) 2.3 % (0.0-4.0); HEMOGLOBIN 8.9 g/dL (14.0-18.0); LYMPHOCYTES % (AUTO) 18.4 % (20.5-51.5); MEAN CORPUSCULAR HEMOGLOBIN 24 pg (27-31); MEAN CORPUSCULAR HGB CONC 33 % (32-36); MEAN CORPUSCULAR VOLUME 73 fL (79.0-98.0); MONOCYTES # (AUTO) 0.7 K/uL (0.0-1.0); MONOCYTES % (AUTO) 12.7 % (1.7-9.3); NEUTROPHILS # (AUTO) 3.6 K/uL (1.8-7.7); NEUTROPHILS % (AUTO) 66.3 % (40.0-70.0); PLATELET COUNT (AUTO) 477 K/uL (130-430); RED BLOOD CELL COUNT(AUTO) 3.72 MIL/uL (4.2-6.2); RED CELL DISTRIBUTION WIDTH 19.6 % (9.0-15.0); WHITE BLOOD COUNT (AUTO) 5.5 K/uL (4.8-10.8)
[2020-05-07 15:19] LABS: CALCIUM 7.3 mg/dL (8.4-11.0); CREATININE 1.05 mg/dL (0.55-1.30); PHOSPHORUS 2.5 mg/dL (2.7-4.5); POTASSIUM 3.4 mmol/L (3.5-5.1)
[2020-05-07] MEDS ORDERED: COLISTIMETHATE SODIUM 75 MG in NS 50 ML IV SCH (16:00)
[2020-05-07 17:04] VITALS: BP_SYST 130
[2020-05-07] MEDS: FLUCONAZOLE 100 mg/ NS 50 ML IV SCH (21:51)
[2020-05-07] MEDS: MORPHINE 2 MG/ML INJ. SYRINGE IVP PRN (21:53)
[2020-05-07] MEDS: MAG-AL HYDROX/SIMETH 30 ML UDC PO PRN (22:14)
[2020-05-07] MEDS: TEMAZEPAM 7.5 MG CAPSULE PO PRN (22:14)
[2020-05-07] MEDS: NS IV SCH (22:57)
[2020-05-07] MEDS: ERAVACYCLINE DI HYDROCHLORIDE IV SCH (22:57)
[2020-05-08] MEDS: MORPHINE 2 MG/ML INJ. SYRINGE IVP PRN ×4 (03:24→21:05)
[2020-05-08] MEDS: MAG-AL HYDROX/SIMETH 30 ML UDC PO PRN ×3 (05:42→16:36)
[2020-05-08 08:00] VITALS: BP_SYST 189
[2020-05-08] MEDS: BALSAM PERU/CASTOR OIL 60 GM OINT...G. TP SCH (09:00)
[2020-05-08] MEDS: MUPIROCIN 2% TOPICAL OINTMENT 22 GM NS SCH ×2 (09:05→21:22)
[2020-05-08] MEDS: HEPARIN SODIUM,PORCINE 5,000 UNITS/ML VIAL SUBCUT SCH ×2 (09:06→21:06)
[2020-05-08] MEDS ORDERED: POTASSIUM CHLORIDE 20 MEQ TAB.PRT.SR PO ONE (09:30)
[2020-05-08] MEDS: NS IV SCH ×2 (09:57→22:20)
[2020-05-08] MEDS: ERAVACYCLINE DI HYDROCHLORIDE IV SCH ×2 (09:57→22:20)
[2020-05-08 10:34] LABS: BASOPHILS % (AUTO) 0.4 % (0.0-2.0); EOSINOPHILS # (AUTO) 0.2 K/uL (0.0-0.4); EOSINOPHILS % (AUTO) 3.6 % (0.0-4.0); HEMATOCRIT 28.8 % (36-54); HEMOGLOBIN 9.2 g/dL (14.0-18.0); LYMPHOCYTES # (AUTO) 1.6 K/uL (1.0-5.5); LYMPHOCYTES % (AUTO) 24.3 % (20.5-51.5); MEAN CORPUSCULAR HEMOGLOBIN 24 pg (27-31); MEAN CORPUSCULAR HGB CONC 32 % (32-36); MEAN CORPUSCULAR VOLUME 74 fL (79.0-98.0); MONOCYTES # (AUTO) 0.7 K/uL (0.0-1.0); MONOCYTES % (AUTO) 11.2 % (1.7-9.3); NEUTROPHILS # (AUTO) 3.9 K/uL (1.8-7.7); NEUTROPHILS % (AUTO) 60.5 % (40.0-70.0); PLATELET COUNT (AUTO) 498 K/uL (130-430); RED BLOOD CELL COUNT(AUTO) 3.89 MIL/uL (4.2-6.2); RED CELL DISTRIBUTION WIDTH 19.8 % (9.0-15.0); WHITE BLOOD COUNT (AUTO) 6.4 K/uL (4.8-10.8)
[2020-05-08 10:53] LABS: CALCIUM 7.5 mg/dL (8.4-11.0); CREATININE 0.78 mg/dL (0.55-1.30); PHOSPHORUS 1.6 mg/dL (2.7-4.5); POTASSIUM 3.4 mmol/L (3.5-5.1)
[2020-05-08] MEDS: ONDANSETRON HCL 4 MG/2 ML VIAL IVP PRN (12:34)
[2020-05-08 17:06] VITALS: BP_SYST 170
[2020-05-08] MEDS: METOPROLOL TARTRATE 50 MG TABLET PO ONE ×2 (17:33→21:21)
[2020-05-08] MEDS: FLUCONAZOLE 100 mg/ NS 50 ML IV SCH (20:49)
[2020-05-08 20:56] VITALS: BP_SYST 178
[2020-05-08] MEDS ORDERED: METOPROLOL TARTRATE 50 MG TABLET ONE (21:20)
[2020-05-08] MEDS: NACL 0.9% 1,000 ML IV SCH (23:48)
[2020-05-09] VITALS (7 sets, daily range): BP systolic 114–153
[2020-05-09] MEDS: MORPHINE 2 MG/ML INJ. SYRINGE IVP PRN ×2 (04:14→08:48)
[2020-05-09] MEDS: MAG-AL HYDROX/SIMETH 30 ML UDC PO PRN ×2 (04:39→23:49)
[2020-05-09] MEDS: NACL 0.9% 1,000 ML IV SCH ×3 (06:34→23:52)
[2020-05-09] MEDS: METOPROLOL TARTRATE 50 MG TABLET PO SCH ×2 (08:38→21:00)
[2020-05-09] MEDS: NS IV SCH ×2 (08:39→21:00)
[2020-05-09] MEDS: MUPIROCIN 2% TOPICAL OINTMENT 22 GM NS SCH ×2 (08:39→23:49)
[2020-05-09] MEDS: ERAVACYCLINE DI HYDROCHLORIDE IV SCH ×2 (08:39→21:00)
[2020-05-09] MEDS: HEPARIN SODIUM,PORCINE 5,000 UNITS/ML VIAL SUBCUT SCH ×2 (08:50→21:00)
[2020-05-09] MEDS ORDERED: MAG-AL HYDROX/SIMETH 30 ML UDC PO PRN (10:45)
[2020-05-09 10:57] LABS: BASOPHILS % (AUTO) 0.5 % (0.0-2.0); EOSINOPHILS # (AUTO) 0.2 K/uL (0.0-0.4); EOSINOPHILS % (AUTO) 2.4 % (0.0-4.0); HEMATOCRIT 29.3 % (36-54); HEMOGLOBIN 9.3 g/dL (14.0-18.0); LYMPHOCYTES # (AUTO) 1.4 K/uL (1.0-5.5); LYMPHOCYTES % (AUTO) 17.3 % (20.5-51.5); MEAN CORPUSCULAR HEMOGLOBIN 24 pg (27-31); MEAN CORPUSCULAR HGB CONC 32 % (32-36); MEAN CORPUSCULAR VOLUME 74 fL (79.0-98.0); MONOCYTES # (AUTO) 0.6 K/uL (0.0-1.0); MONOCYTES % (AUTO) 7.5 % (1.7-9.3); NEUTROPHILS % (AUTO) 72.3 % (40.0-70.0); PLATELET COUNT (AUTO) 516 K/uL (130-430); RED BLOOD CELL COUNT(AUTO) 3.97 MIL/uL (4.2-6.2); RED CELL DISTRIBUTION WIDTH 19.8 % (9.0-15.0); WHITE BLOOD COUNT (AUTO) 8.2 K/uL (4.8-10.8)
[2020-05-09] MEDS ORDERED: FAMOTIDINE 20 MG TABLET PO ONE (11:00)
[2020-05-09 11:04] LABS: CALCIUM 7.4 mg/dL (8.4-11.0); CREATININE 0.76 mg/dL (0.55-1.30); POTASSIUM 3.9 mmol/L (3.5-5.1)
[2020-05-09] MEDS: BALSAM PERU/CASTOR OIL 60 GM OINT...G. TP SCH (16:20)
[2020-05-09] MEDS: FLUCONAZOLE 100 mg/ NS 50 ML IV SCH (21:00)
[2020-05-09] MEDS: TEMAZEPAM 7.5 MG CAPSULE PO PRN (23:50)
[2020-05-10 07:22] LABS: BASOPHILS % (AUTO) 0.3 % (0.0-2.0); EOSINOPHILS # (AUTO) 0.2 K/uL (0.0-0.4); EOSINOPHILS % (AUTO) 1.9 % (0.0-4.0); HEMATOCRIT 27.2 % (36-54); HEMOGLOBIN 8.8 g/dL (14.0-18.0); LYMPHOCYTES # (AUTO) 2.4 K/uL (1.0-5.5); LYMPHOCYTES % (AUTO) 29.2 % (20.5-51.5); MEAN CORPUSCULAR HEMOGLOBIN 24 pg (27-31); MEAN CORPUSCULAR HGB CONC 32 % (32-36); MEAN CORPUSCULAR VOLUME 73 fL (79.0-98.0); MONOCYTES # (AUTO) 0.9 K/uL (0.0-1.0); MONOCYTES % (AUTO) 10.8 % (1.7-9.3); NEUTROPHILS # (AUTO) 4.7 K/uL (1.8-7.7); NEUTROPHILS % (AUTO) 57.8 % (40.0-70.0); PLATELET COUNT (AUTO) 482 K/uL (130-430); RED BLOOD CELL COUNT(AUTO) 3.74 MIL/uL (4.2-6.2); RED CELL DISTRIBUTION WIDTH 19.8 % (9.0-15.0); WHITE BLOOD COUNT (AUTO) 8.1 K/uL (4.8-10.8)
[2020-05-10 07:51] LABS: CALCIUM 7.2 mg/dL (8.4-11.0); CREATININE 0.71 mg/dL (0.55-1.30); POTASSIUM 4.6 mmol/L (3.5-5.1)
[2020-05-10 08:56] VITALS: BP_SYST 152
[2020-05-10] MEDS ORDERED: FAMOTIDINE 20 MG TABLET PO SCH (09:00)
[2020-05-10] MEDS: MUPIROCIN 2% TOPICAL OINTMENT 22 GM NS SCH ×2 (12:28→21:19)
[2020-05-10] MEDS: HEPARIN SODIUM,PORCINE 5,000 UNITS/ML VIAL SUBCUT SCH ×2 (12:29→21:16)
[2020-05-10] MEDS: METOPROLOL TARTRATE 50 MG TABLET PO SCH ×3 (12:29→21:40)
[2020-05-10] MEDS: MORPHINE 2 MG/ML INJ. SYRINGE IVP PRN ×3 (13:39→21:17)
[2020-05-10] MEDS: MAG-AL HYDROX/SIMETH 30 ML UDC PO PRN (13:40)
[2020-05-10] MEDS: NS IV SCH ×2 (13:41→21:20)
[2020-05-10] MEDS: ERAVACYCLINE DI HYDROCHLORIDE IV SCH ×2 (13:41→21:20)
[2020-05-10] MEDS ORDERED: METOPROLOL TARTRATE 50 MG TABLET ONE (15:31)
[2020-05-10] MEDS: BALSAM PERU/CASTOR OIL 60 GM OINT...G. TP SCH (16:00)
[2020-05-10 16:10] VITALS: BP_SYST 164
[2020-05-10] MEDS ORDERED: PANTOPRAZOLE SODIUM 40 MG/VIAL (PROTONIX) ONE (18:10)
[2020-05-10] MEDS: PANTOPRAZOLE SODIUM 40 MG/VIAL (PROTONIX) IVP SCH (18:17)
[2020-05-10 20:30] VITALS: BP_SYST 139
[2020-05-10] MEDS: NACL 0.9% 1,000 ML IV SCH (21:41)
[2020-05-10] MEDS: TEMAZEPAM 7.5 MG CAPSULE PO PRN (23:23)
[2020-05-10] MEDS: FLUCONAZOLE 100 mg/ NS 50 ML IV SCH (23:25)
[2020-05-11 00:02] VITALS: BP_SYST 158
[2020-05-11 07:00] LABS: BASOPHILS # (AUTO) 0.1 K/uL (0.0-0.2); BASOPHILS % (AUTO) 0.8 % (0.0-2.0); EOSINOPHILS # (AUTO) 0.2 K/uL (0.0-0.4); EOSINOPHILS % (AUTO) 2.3 % (0.0-4.0); HEMATOCRIT 26.4 % (36-54); HEMOGLOBIN 8.7 g/dL (14.0-18.0); LYMPHOCYTES # (AUTO) 2.3 K/uL (1.0-5.5); LYMPHOCYTES % (AUTO) 28.3 % (20.5-51.5); MEAN CORPUSCULAR HEMOGLOBIN 24 pg (27-31); MEAN CORPUSCULAR HGB CONC 33 % (32-36); MEAN CORPUSCULAR VOLUME 72 fL (79.0-98.0); MONOCYTES # (AUTO) 0.7 K/uL (0.0-1.0); MONOCYTES % (AUTO) 8.7 % (1.7-9.3); NEUTROPHILS # (AUTO) 4.8 K/uL (1.8-7.7); NEUTROPHILS % (AUTO) 59.9 % (40.0-70.0); PLATELET COUNT (AUTO) 436 K/uL (130-430); RED BLOOD CELL COUNT(AUTO) 3.66 MIL/uL (4.2-6.2); RED CELL DISTRIBUTION WIDTH 20.1 % (9.0-15.0)
[2020-05-11 08:00] VITALS: BP_SYST 135
[2020-05-11] MEDS: PANTOPRAZOLE SODIUM 40 MG/VIAL (PROTONIX) IVP SCH (08:59)
[2020-05-11] MEDS: METOPROLOL TARTRATE 50 MG TABLET PO SCH ×2 (08:59→21:49)
[2020-05-11] MEDS: MUPIROCIN 2% TOPICAL OINTMENT 22 GM NS SCH ×2 (09:00→21:00)
[2020-05-11] MEDS: HEPARIN SODIUM,PORCINE 5,000 UNITS/ML VIAL SUBCUT SCH ×2 (09:03→21:55)
[2020-05-11] MEDS: MORPHINE 2 MG/ML INJ. SYRINGE IVP PRN ×3 (09:12→21:57)
[2020-05-11] MEDS: NS IV SCH ×2 (09:21→21:58)
[2020-05-11] MEDS: ERAVACYCLINE DI HYDROCHLORIDE IV SCH ×2 (09:21→21:58)
[2020-05-11] MEDS: BALSAM PERU/CASTOR OIL 60 GM OINT...G. TP SCH (09:30)
[2020-05-11 11:27] LABS: CALCIUM 7.1 mg/dL (8.4-11.0); CREATININE 0.81 mg/dL (0.55-1.30); POTASSIUM 4.7 mmol/L (3.5-5.1)
[2020-05-11] MEDS ORDERED: NS IV SCH ×2 (12:00→21:00)
[2020-05-11] MEDS ORDERED: MINOCYCLINE HCL IV SCH ×2 (12:00→21:00)
[2020-05-11] MEDS: NACL 0.9% 1,000 ML IV SCH ×2 (18:00→23:18)
[2020-05-11 20:41] VITALS: BP_SYST 149
[2020-05-11] MEDS: ONDANSETRON HCL 4 MG/2 ML VIAL IVP PRN (21:49)
[2020-05-12 00:30] VITALS: BP_SYST 137
[2020-05-12] MEDS: MORPHINE 2 MG/ML INJ. SYRINGE IVP PRN ×3 (03:03→20:58)
[2020-05-12 07:17] LABS: CREATININE 0.72 mg/dL (0.55-1.30); POTASSIUM 4.3 mmol/L (3.5-5.1)
[2020-05-12 07:18] LABS: BASOPHILS # (AUTO) 0.1 K/uL (0.0-0.2); BASOPHILS % (AUTO) 0.8 % (0.0-2.0); EOSINOPHILS # (AUTO) 0.3 K/uL (0.0-0.4); EOSINOPHILS % (AUTO) 3.7 % (0.0-4.0); HEMATOCRIT 24.1 % (36-54); HEMOGLOBIN 7.8 g/dL (14.0-18.0); LYMPHOCYTES % (AUTO) 25.8 % (20.5-51.5); MEAN CORPUSCULAR HEMOGLOBIN 24 pg (27-31); MEAN CORPUSCULAR HGB CONC 32 % (32-36); MEAN CORPUSCULAR VOLUME 73 fL (79.0-98.0); MONOCYTES # (AUTO) 0.6 K/uL (0.0-1.0); MONOCYTES % (AUTO) 8.2 % (1.7-9.3); NEUTROPHILS # (AUTO) 4.9 K/uL (1.8-7.7); NEUTROPHILS % (AUTO) 61.5 % (40.0-70.0); PLATELET COUNT (AUTO) 391 K/uL (130-430); RED BLOOD CELL COUNT(AUTO) 3.32 MIL/uL (4.2-6.2); RED CELL DISTRIBUTION WIDTH 20.1 % (9.0-15.0); WHITE BLOOD COUNT (AUTO) 7.9 K/uL (4.8-10.8)
[2020-05-12 08:00] VITALS: BP_SYST 151
[2020-05-12 08:09] LABS: CALCIUM 6.9 mg/dL (8.4-11.0)
[2020-05-12] MEDS: MUPIROCIN 2% TOPICAL OINTMENT 22 GM NS SCH ×2 (09:00→21:00)
[2020-05-12 11:00] VITALS: BP_SYST 153
[2020-05-12] MEDS: PANTOPRAZOLE SODIUM 40 MG/VIAL (PROTONIX) IVP SCH (11:08)
[2020-05-12] MEDS: METOPROLOL TARTRATE 50 MG TABLET PO SCH ×2 (11:08→20:55)
[2020-05-12] MEDS: CALCIUM 500 MG/TAB PO SCH ×2 (11:10→20:55)
[2020-05-12] MEDS: HEPARIN SODIUM,PORCINE 5,000 UNITS/ML VIAL SUBCUT SCH ×2 (11:13→20:57)
[2020-05-12] MEDS: BALSAM PERU/CASTOR OIL 60 GM OINT...G. TP SCH (11:23)
[2020-05-12] MEDS: NS IV SCH ×2 (11:26→20:54)
[2020-05-12] MEDS: ERAVACYCLINE DI HYDROCHLORIDE IV SCH ×2 (11:26→20:54)
[2020-05-12] MEDS: NACL 0.9% 1,000 ML IV SCH (11:33)
[2020-05-12 14:00] VITALS: BP_SYST 151
[2020-05-12 16:00] VITALS: BP_SYST 152
[2020-05-12 20:00] VITALS: BP_SYST 133
[2020-05-12] MEDS: TEMAZEPAM 7.5 MG CAPSULE PO PRN (21:20)
[2020-05-13] VITALS: BP_SYST 141
[2020-05-13] MEDS: MORPHINE 2 MG/ML INJ. SYRINGE IVP PRN ×3 (02:21→14:02)
[2020-05-13 08:15] LABS: BASOPHILS # (AUTO) 0.1 K/uL (0.0-0.2); BASOPHILS % (AUTO) 0.7 % (0.0-2.0); EOSINOPHILS # (AUTO) 0.3 K/uL (0.0-0.4); EOSINOPHILS % (AUTO) 4.3 % (0.0-4.0); HEMATOCRIT 24.2 % (36-54); HEMOGLOBIN 7.9 g/dL (14.0-18.0); LYMPHOCYTES # (AUTO) 1.7 K/uL (1.0-5.5); LYMPHOCYTES % (AUTO) 21.6 % (20.5-51.5); MEAN CORPUSCULAR HEMOGLOBIN 24 pg (27-31); MEAN CORPUSCULAR HGB CONC 33 % (32-36); MEAN CORPUSCULAR VOLUME 73 fL (79.0-98.0); MONOCYTES # (AUTO) 0.7 K/uL (0.0-1.0); MONOCYTES % (AUTO) 9.4 % (1.7-9.3); NEUTROPHILS # (AUTO) 4.9 K/uL (1.8-7.7); PLATELET COUNT (AUTO) 417 K/uL (130-430); RED BLOOD CELL COUNT(AUTO) 3.31 MIL/uL (4.2-6.2); RED CELL DISTRIBUTION WIDTH 20.3 % (9.0-15.0); WHITE BLOOD COUNT (AUTO) 7.7 K/uL (4.8-10.8)
[2020-05-13] MEDS: METOPROLOL TARTRATE 50 MG TABLET PO SCH (08:59)
[2020-05-13] MEDS: PANTOPRAZOLE SODIUM 40 MG/VIAL (PROTONIX) IVP SCH (09:00)
[2020-05-13] MEDS: BALSAM PERU/CASTOR OIL 60 GM OINT...G. TP SCH (09:00)
[2020-05-13] MEDS: CALCIUM 500 MG/TAB PO SCH (09:00)
[2020-05-13] MEDS: MUPIROCIN 2% TOPICAL OINTMENT 22 GM NS SCH (09:00)
[2020-05-13] MEDS: HEPARIN SODIUM,PORCINE 5,000 UNITS/ML VIAL SUBCUT SCH (09:04)
[2020-05-13] MEDS: NACL 0.9% 1,000 ML IV SCH (09:11)
[2020-05-13] MEDS: NS IV SCH (09:11)
[2020-05-13] MEDS: ERAVACYCLINE DI HYDROCHLORIDE IV SCH (09:11)
[2020-05-13 09:25] LABS: CALCIUM 6.3 mg/dL (8.4-11.0); PHOSPHORUS 2.2 mg/dL (2.7-4.5)
[2020-05-13 09:45] LABS: CREATININE 0.73 mg/dL (0.55-1.30); POTASSIUM 4.3 mmol/L (3.5-5.1)
[2020-05-13 09:46] LABS: CALCIUM 6.3 mg/dL (8.4-11.0)
[2020-05-13] MEDS ORDERED: MAGNESIUM OXIDE 400 MG TABLET PO ONE (12:15)
[2020-05-13 12:17] VITALS: BP_SYST 133
[2020-05-13] MEDS ORDERED: MAGNESIUM OXIDE 400 MG TABLET PO SCH (21:00)
== END 2020-05-13 15:15 | DRG 853 ==
LOC: SED 14:25 → STU 19:07 → SMU 05-05 22:54
PROC: 0JBM0ZZ Excision of Left Upper Leg Subcutaneous Tissue and Fascia, Open Approach (ICD-10-PCS; 2020-05-06)
PROC: 0JBB0ZZ Excision of Perineum Subcutaneous Tissue and Fascia, Open Approach (ICD-10-PCS; 2020-05-06)
PROC: 0JB90ZZ Excision of Buttock Subcutaneous Tissue and Fascia, Open Approach (ICD-10-PCS; 2020-05-06)
PROC: 0JB90ZZ Excision of Buttock Subcutaneous Tissue and Fascia, Open Approach (ICD-10-PCS; 2020-05-06)
PROC: 0JB70ZZ Excision of Back Subcutaneous Tissue and Fascia, Open Approach (ICD-10-PCS; principal; 2020-05-06 10:30)
PROC: 0T2BX0Z Change Drainage Device in Bladder, External Approach (ICD-10-PCS; 2020-05-07)
PROC: 05HY33Z Insertion of Infusion Device into Upper Vein, Percutaneous Approach (ICD-10-PCS; 2020-05-10)
PROC: B54NZZA Ultrasonography of Left Upper Extremity Veins, Guidance (ICD-10-PCS; 2020-05-10)
DX: A41.59 Other Gram-negative sepsis (principal); L89.104 Pressure ulcer of unspecified part of back, stage 4; N17.0 Acute kidney failure with tubular necrosis; L89.324 Pressure ulcer of left buttock, stage 4; L89.314 Pressure ulcer of right buttock, stage 4; L89.894 Pressure ulcer of other site, stage 4; L89.154 Pressure ulcer of sacral region, stage 4; E43 Unspecified severe protein-calorie malnutrition; G82.20 Paraplegia, unspecified; M86.9 Osteomyelitis, unspecified; N39.0 Urinary tract infection, site not specified; E87.1 Hypo-osmolality and hyponatremia; Z68.1 Body mass index [BMI] 19.9 or less, adult; F17.210 Nicotine dependence, cigarettes, uncomplicated; N18.9 Chronic kidney disease, unspecified; Y83.8 Other surgical procedures as the cause of abnormal reaction of the patient, or of later complication, without mention of misadventure at the time of the procedure; N31.9 Neuromuscular dysfunction of bladder, unspecified; F10.10 Alcohol abuse, uncomplicated; E86.0 Dehydration; Z20.828 Contact with and (suspected) exposure to other viral communicable diseases; E87.5 Hyperkalemia; D50.9 Iron deficiency anemia, unspecified; D47.3 Essential (hemorrhagic) thrombocythemia; T83.018A Breakdown (mechanical) of other urinary catheter, initial encounter; Y92.89 Other specified places as the place of occurrence of the external cause; Z91.19 Patient's noncompliance with other medical treatment and regimen; Z20.822 Contact with and (suspected) exposure to COVID-19; Z11.52 Encounter for screening for COVID-19
CPT/HCPCS: 36415; 71045; 80048; 80053; 80202-TC; 81000-TC; 82310-TC; 82550-TC; 82570-TC; 83540-TC; 83550-TC; 83605; 83735-TC; 84100-TC; 84302-TC; 85007; 85025; 85027; 85610-TC; 85730-TC; 86870; 86886; 86900; 86901; 87040-TC; 87070; 87070-TC; 87075-TC; 87081; 88304; 93005; 94010; 96365; 96372; 99291; A5061; C1751; C9113; G0378; J0122; J0770; J1170; J1450; J1630; J1644; J1815; J2060; J2185; J2270; J2405; J2543; J2765; J3370; J7030; J7050; J7060